=== PATIENT | male | born 1935 | race Caucasian/White ===

== ENCOUNTER 2017-05-29 20:52 | Emergency (ER) | payer MEDICARE, BC ==
[2017-05-29] MEDS ORDERED: Sodium Chloride 0.9% 10 ML Syringe FLUSH PRN (21:08)
[2017-05-29] MEDS ORDERED: Labetalol 20 MG/4 ML Syringe IVPUSH ONE (21:10)
[2017-05-29 22:18] LABS: CHLORIDE,CL 105 mmol/L (98-107); SODIUM,NA 140 mmol/L (136-145)
[2017-05-29 22:38] VITALS: BP 162/72
--- NOTE | 2017-05-30 08:18 | ER ---
Date of Service: 05/29/2017 SUBJECTIVE: The patient presents to the emergency room with complaints of lightheadedness. The patient states that he has been experiencing lightheadedness intermittently for the past several weeks. 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 The patient states that he is not experiencing any chest pain or shortness of breath with this event. He states that he is not experiencing any diaphoresis or nausea. The patient states that the symptoms resolved on their own. He states that he has no prior past medical history and is on no medications, but on reviewing his medical record it was determined that the patient is being followed for lung nodules and does undergo frequent CT scans for these. During CT scans, he has been shown to have moderate atherosclerosis in his coronary arteries. PAST MEDICAL HISTORY: Lung nodules. MEDICATIONS: None. ALLERGIES: NKDA. REVIEW OF SYSTEMS: General: No fever or chills. HEENT: No sore throat, rhinorrhea, or congestion. Respiratory: No shortness of breath. Cardiac: Denies any substernal chest pain. No jaw, arm, neck, or back pain. No palpitations. GI: No nausea, vomiting, or diarrhea. No melena, hematochezia, or hematemesis. : Denies any dysuria. Musculoskeletal: No myalgias or arthralgias. Neurologic: Again did have an episode of lightheadedness without loss of consciousness, lasting less than 5 minutes. PHYSICAL EXAMINATION: General: An 82-year-old male patient, who is in no acute distress. VITAL SIGNS: Initial blood pressure was 196/89. Respiratory rate is 18, O2 saturation is 94% on room air, temperature 36.6, and heart rate is 86. After the patient received IV labetalol, his blood pressure was down to 160/70. Skin: Warm, pale, and dry. HEENT: Head is normocephalic and atraumatic. Eyes: PERRLA. Extraocular movements are intact. There is no funduscopic papilledema noted. Ears, TMs are clear. Mouth: Oral mucosa is somewhat dry. No erythema or exudate. No hypopharynx. Neck: Supple without masses. There is no lymphadenopathy. Lungs: Clear to auscultation. Heart: Regular rate and rhythm. Abdomen: Soft and nontender. There is no hepatosplenomegaly or masses noted. Extremities: Without edema. He has 5/5 strength in both his upper and lower extremities. Neurologic: He has no pronator drift. His Romberg is negative. Facial muscles are symmetrical. Cranial nerves 2 through 12 are intact. DIAGNOSTIC DATA: EKG was obtained showing sinus rhythm with left bundle-branch block. LABORATORY DATA: WBC is 8.5, hemoglobin is 12.1, platelets are 225. Chemistry: Sodium is 140, potassium is 4.8, chloride is 105, bicarb is 28, BUN is 19, creatinine is 1.0, creatinine clearance is 59.73, GFR is greater than 60, glucose is 120, calcium is 8.8, corrected calcium is 9.36, total bilirubin is 0.5, AST is 19, ALT is 17, alkaline phosphatase is 87, CK is 162, CK-MB is 2.7, troponin is less than 0.017, C-reactive protein is 1.7, albumin is 3.3, TSH is mildly elevated at 4.98. He does have a history of elevated TSH. EMERGENCY ROOM COURSE: IV access was established. He was given 20 mg of labetalol IV. Again, this did improve his blood pressure significantly. He did not experience any further lightheadedness. ASSESSMENT: 1. Episode of lightheadedness. 2. Incidental finding of left bundle-branch block. PLAN: I did speak with Dr. Avila at [facility] in [place]. He advised that the patient could be followed up with on an outpatient basis after this hospitalization and stated that he would require a stress test at some point. I did subsequently offer the patient observation hospitalization to perform serial troponin and CK-MB, but the patient adamantly refused. Advised to return to the emergency room if he develops any worsening lightheadedness, chest pain, shortness of breath, or other worrisome signs or symptoms. All questions were answered. MWK: 05/30/2017 02:06:38 MODL: 05/30/2017 06:26:31 /[id number]
== END 2017-05-29 23:05 | disposition home or self-care (01) ==
LOC: VM.ED 20:52
DX: R42 Dizziness and giddiness (principal); I44.7 Left bundle-branch block, unspecified
CPT/HCPCS: 36415; 80053; 82550; 82553; 84443; 84484; 85025; 86140; 93005; 99283; J7050; 96374; A9270-GY

== ENCOUNTER 2019-02-07 20:06 | Emergency (ER) | payer MEDICARE, BC ==
[2019-02-07] MEDS ORDERED: Sodium Chloride 0.9% 10 ML Syringe FLUSH PRN (20:17)
[2019-02-07] MEDS ORDERED: Acetaminophen 500 MG Tab PO ONE (20:20)
[2019-02-07] MEDS ORDERED: Albuterol/Ipratropium 3.0-0.5 MG/3 ML Neb Soln NEB ONE (20:27)
--- NOTE | 2019-02-07 20:42 | EDM.PDOC ---
ED HPI GENERAL MEDICAL PROBLEM - General Chief Complaint: Fever Time Seen by Provider: 02/07/19 20:19 Source of Information: Reports: Patient History Limitations: Reports: No Limitations - History of Present Illness INITIAL COMMENTS - FREE TEXT/NARRATIVE: Pt. presents to ER with complaints of fever, cough, confusion, and mild dyspnea that started late this afternoon. He was brought to the ER via EMS. He states that he has not been experiencing any cough prior to today. He did complain of for R sided flank pain a few days ago. Denies any rashes. No sinus congestion or sore throat. He did have some vomiting but also had a normal stool. He was given a 500ml bolus of NS by EMS. Family states that patient is prone to pneumonia. No has a history of Parkinson' s disease and is on carbidopa/Levodopa. He has no known history of COPD but has a diagnosis of interstitial lung disease. He is not currently on any inhalers. Pt. has no known cardiac history. He was seen in our ER in 2017 for lightheadedness. He was referred to cardiology and had a holter study which did no show any a-fib. He did have an isolated episode of SVT. He has not had any problems since that event. Pt. was noted to be in sinus tach with LBBB on the prehospital 12 lead. This was compared to the EKG done on his visit in 2017 and was unchanged. Denies any abdominal pain. No dysuria. No blood in stools. No recent hospitalizations. No recent travel, foreign or otherwise. Denies any ill contacts that he knows of. 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 Pt. states that the symptoms started today, but his states that he "hasn't been right all week", stating he has been mildly confused and fatigued. Onset: Today Location: Reports: Chest, Generalized Associated Symptoms: Reports: Confusion, Cough, Fever/Chills, Nausea/Vomiting, Weakness. Denies: Chest Pain, Diaphoresis, Rash Treatments [employer]: Reports: IV/IO, Oxygen - Related Data Allergies Allergy/AdvReac Type Severity Reaction Status Date / Time No Known Allergies Allergy Verified 02/07/19 20:20 Home Meds: Home Meds Ascorbate Calcium [Vitamin C] 500 mg PO DAILY 02/07/19 [History] Aspirin [Halfprin] 1 tab PO DAILY 02/07/19 [History] Bilberry 1 tab PO DAILY 02/07/19 [History] Carbidopa/Levodopa [Carbidopa-Levo 25-100 MG ODT] 1 tab PO QID 02/07/19 [History ] Cholecalciferol (Vitamin D3) [Vitamin D3] 2,000 units PO DAILY 02/07/19 [History ] Flaxseed/Omega3,6,9/Fatty Acid [Flax Seed Oil 1,300 mg Softgel] 02/07/19 [ History] Inositol Niacinate [Inositol Hexanicotinate] 500 mg PO DAILY 02/07/19 [History] Magnesium 1 tab PO DAILY 02/07/19 [History] Methylsulfonylmethane [MSM] 1 tab PO DAILY 02/07/19 [History] Mirtazapine 15 mg PO BEDTIME 02/07/19 [History] [place]-3/DHA/Epa/Fish Oil [[place]-3 Fish Oil 1,000 MG Sfgl] 1,000 mg PO DAILY 01/23 [History] Potassium 1 tab PO DAILY 02/07/19 [History] Vitamin E 1 tab PO DAILY 02/07/19 [History] Zinc Amino Acid Chelate [Zinc] 50 mg PO DAILY 02/07/19 [History] Zinc Gluconate [Zinc] 50 mg PO DAILY 02/07/19 [History] Past Medical History Respiratory History: Reports: Other (See Below) Other Respiratory History: chronic "farmers" cough - Past Surgical History HEENT Surgical History: Reports: Cataract Surgery, Tonsillectomy Dermatological Surgical History: Reports: Skin Biopsy Social & Family History - Tobacco Use Smoking Status *Q: Never Smoker - Recreational Drug Use Recreational Drug Use: No ED ROS GENERAL - Review of Systems Review Of Systems: See Below Constitutional: Reports: No Symptoms HEENT: Reports: No Symptoms Respiratory: Reports: Shortness of Breath, Cough Cardiovascular: Reports: No Symptoms Endocrine: Reports: No Symptoms GI/Abdominal: Reports: Nausea, Vomiting. Denies: Abdominal Pain, Diarrhea, Hematemesis, Hematochezia, Melena, Mucous in Stool : Reports: Flank Pain (R sided last week) Musculoskeletal: Reports: No Symptoms Skin: Reports: No Symptoms Neurological: Reports: No Symptoms Psychiatric: Reports: No Symptoms Hematologic/Lymphatic: Reports: No Symptoms Immunologic: Reports: No Symptoms ED EXAM, GENERAL - Physical Exam Exam: See Below Exam Limited By: No Limitations General Appearance: Alert, WD/WN, No Apparent Distress Eye Exam: Bilateral Eye: EOMI, PERRL Ears: Normal External Exam, Normal Canal, Hearing Grossly Normal, Normal TMs Ear Exam: Bilateral Ear: Auricle Normal, Canal Normal, TM normal Nose: Normal Mucosa, No Blood Throat/Mouth: Normal Inspection, Normal Lips, Normal Gums, Normal Oropharynx, Normal Voice, No Airway Compromise Head: Atraumatic, Normocephalic Neck: Normal Inspection, Supple, Non-Tender, Full Range of Motion Respiratory/Chest: Respiratory Distress, Decreased Breath Sounds, Crackles, Wheezing Cardiovascular: Normal Peripheral Pulses, Regular Rate, Rhythm, No Edema, No Gallop, No JVD, No Murmur, No Rub Peripheral Pulses: 4+: Brachial (R) GI/Abdominal: Soft, Non-Tender, No Organomegaly, No Distention, No Mass (Male) Exam: Deferred Rectal (Males) Exam: Deferred Back Exam: Normal Inspection, Full Range of Motion Extremities: Normal Inspection, Normal Range of Motion, Non-Tender, No Pedal Edema, Normal Capillary Refill Neurological: Alert, Oriented, CN II-XII Intact, Normal Reflexes, No Motor/ Sensory Deficits, Confused (initially was mildly confused) Psychiatric: Normal Affect, Normal Mood Skin Exam: Warm, Dry, Intact, Other (flushed) EKG INTERPRETATION Rhythm: NSR [place]: Normal P-Wave: Present QRS: LBBB ST-T: Normal QT: Normal Course - Vital Signs Last Recorded V/S: Last Vital Signs Temp 40.5 C H 02/07/19 21:13 Pulse 112 H 02/07/19 21:19 Resp 24 H 02/07/19 21:19 BP 136/68 02/07/19 21:19 Pulse Ox 94 L 02/07/19 21:19 - Orders/Labs/Meds Orders: Active Orders 24 hr Category Date Time Status EKG Documentation Completion [RC] STAT Care 02/07/19 20:18 Active RT Aerosol Therapy [RC] ASDIRECTED Care 02/07/19 20:27 Active Chest 1V Frontal [CR] Stat Exams 02/07/19 20:18 Ordered CULTURE BLOOD [BC] Stat Lab 02/07/19 20:19 Ordered CULTURE BLOOD [BC] Stat Lab 02/07/19 20:19 Ordered UA W/MICROSCOPIC [URIN] Stat Lab 02/07/19 20:19 Ordered Sodium Chloride 0.9% @ 100 MLS/HR(1000ml) Med 02/07/19 21:15 Ordered Sodium Chloride 0.9% [Normal Saline] 1,000 ml IV ASDIRECTED Sodium Chloride 0.9% [Saline Flush] Med 02/07/19 20:17 Active 10 ml FLUSH ASDIRECTED PRN Vancomycin 1,500 mg Med 02/07/19 21:48 Ordered Sodium Chloride 0.9% [Normal Saline] 250 ml IV STAT Blood Culture x2 Reflex Set [OM.PC] Stat Oth 02/07/19 20:19 Ordered Peripheral IV Insertion Adult [OM.PC] Routine Oth 02/07/19 20:18 Ordered Medication Orders Sodium Chloride (Normal Saline) 1,000 mls @ 100 mls/hr IV ASDIRECTED RYDER Last Admin: 02/07/19 21:17 Dose: 100 mls/hr Vancomycin HCl 1,500 mg/ (Sodium Chloride) 250 mls @ 167 mls/hr IV STAT ONE Stop: 02/07/19 23:17 Sodium Chloride (Saline Flush) 10 ml FLUSH ASDIRECTED PRN PRN Reason: Keep Vein Open Last Admin: 02/07/19 20:31 Dose: 10 ml Labs: Laboratory Tests 02/07/19 02/07/19 02/07/19 Range/Units 20:38 20:38 20:38 WBC 3.3 L (4.0-10.0) x10^3/uL RBC 3.61 L (4.5-6.0) x10^6/uL Hgb 10.8 L (14.0-18.0) g/dL Hct 33.6 L (40.0-52.0) % MCV 93.1 H (78.0-93.0) fL MCH 29.9 (26.0-32.0) pg MCHC 32.1 (32.0-36.0) g/dL RDW Coeff of Angelique 13.2 (10.0-15.0) % Plt Count 185 (130-400) x10^3/uL Add Manual Diff Yes Neutrophils % (Manual) 79 (50-80) % Band Neutrophils % 5 (0-6) % Lymphocytes % (Manual) 3 L (25-50) % Reactive Lymphs % 1 H (0) % Monocytes % (Manual) 6 (2-11) % Eosinophils % (Manual) 3 (0-4) % Metamyelocytes % 3 H (0) % Vacuolated Monocytes 2+ moderate H Toxic Granulation 1+ slight H Polychromasia Rare Rouleaux 1+ slight H PT 13.4 H (10.0-12.8) SEC INR 1.2 L (2.0-3.5) Sodium 143 (136-145) mmol/L Potassium 4.4 (3.5-5.1) mmol/L Chloride 107 (98-107) mmol/L Carbon Dioxide 22 (21-32) mmol/L Anion Gap 18.4 (10-20) mmol/L BUN 31 H (7-18) mg/dL Creatinine 1.5 H (0.70-1.30) mg/dL Est Cr Clr Drug Dosing 38.53 mL/min Estimated GFR (MDRD) 45 Glucose 99 (74-106) mg/dL Lactic Acid (0.4-2.0) mmol/L Calcium 8.2 L (8.5-10.1) mg/dL Corrected Calcium 9.24 (8.5-10.1) mg/dL Phosphorus 2.8 (2.6-4.7) mg/dL Magnesium 1.4 L (1.8-2.4) mg/dL Total Bilirubin 0.6 (0.2-1.0) mg/dL AST 36 (15-37) U/L ALT 23 (16-63) U/L Alkaline Phosphatase 178 H (46-116) U/L Troponin I 0.077 H* (<=0.056) ng/mL C-Reactive Protein 4.1 H (<=0.9) mg/dL NT-Pro-B Natriuret Pep 412 (<=450) pg/mL Total Protein 7.1 (6.4-8.2) g/dL Albumin 2.7 L (3.4-5.0) g/dL Globulin 4.4 Albumin/Globulin Ratio 0.61 TSH, Ultra Sensitive 8.659 H (0.358-3.74) uIU/mL 02/07/19 Range/Units 20:38 WBC (4.0-10.0) x10^3/uL RBC (4.5-6.0) x10^6/uL Hgb (14.0-18.0) g/dL Hct (40.0-52.0) % MCV (78.0-93.0) fL MCH (26.0-32.0) pg MCHC (32.0-36.0) g/dL RDW Coeff of Angelique (10.0-15.0) % Plt Count (130-400) x10^3/uL Add Manual Diff Neutrophils % (Manual) (50-80) % Band Neutrophils % (0-6) % Lymphocytes % (Manual) (25-50) % Reactive Lymphs % (0) % Monocytes % (Manual) (2-11) % Eosinophils % (Manual) (0-4) % Metamyelocytes % (0) % Vacuolated Monocytes Toxic Granulation Polychromasia Rouleaux PT (10.0-12.8) SEC INR (2.0-3.5) Sodium (136-145) mmol/L Potassium (3.5-5.1) mmol/L Chloride (98-107) mmol/L Carbon Dioxide (21-32) mmol/L Anion Gap (10-20) mmol/L BUN (7-18) mg/dL Creatinine (0.70-1.30) mg/dL Est Cr Clr Drug Dosing mL/min Estimated GFR (MDRD) Glucose (74-106) mg/dL Lactic Acid 4.2 H* (0.4-2.0) mmol/L Calcium (8.5-10.1) mg/dL Corrected Calcium (8.5-10.1) mg/dL Phosphorus (2.6-4.7) mg/dL Magnesium (1.8-2.4) mg/dL Total Bilirubin (0.2-1.0) mg/dL AST (15-37) U/L ALT (16-63) U/L Alkaline Phosphatase (46-116) U/L Troponin I (<=0.056) ng/mL C-Reactive Protein (<=0.9) mg/dL NT-Pro-B Natriuret Pep (<=450) pg/mL Total Protein (6.4-8.2) g/dL Albumin (3.4-5.0) g/dL Globulin Albumin/Globulin Ratio TSH, Ultra Sensitive (0.358-3.74) uIU/mL Meds: Medications Generic Name Dose Route Start Last Admin Trade Name Freq PRN Reason Stop Dose Admin Sodium Chloride 1,000 mls @ 100 mls/hr 02/07/19 21:15 02/07/19 21:17 Normal Saline IV 100 mls/hr ASDIRECTED RYDER Administration Vancomycin HCl 1,500 mg/ 250 mls @ 167 mls/hr 02/07/19 21:48 Sodium Chloride IV 02/07/19 23:17 STAT ONE Sodium Chloride 10 ml 02/07/19 20:17 02/07/19 20:31 Saline Flush FLUSH 10 ml ASDIRECTED PRN Administration Keep Vein Open Discontinued Medications Generic Name Dose Route Start Last Admin Trade Name Freq PRN Reason Stop Dose Admin Acetaminophen 1,000 mg 02/07/19 20:20 02/07/19 20:30 Tylenol Extra Strength PO 02/07/19 20:21 1,000 mg ONETIME ONE Administration Albuterol/Ipratropium 3 ml 02/07/19 20:27 02/07/19 20:39 Duoneb 3.0-0.5 Mg/3 Ml NEB 02/07/19 20:28 3 ml ONETIME ONE Administration Ceftriaxone Sodium 2 gm 02/07/19 20:50 02/07/19 21:01 Rocephin IVPUSH 02/07/19 20:51 2 gm STAT ONE Administration Azithromycin 500 mg/ Sodium 250 mls @ 250 mls/hr 02/07/19 20:51 02/07/19 21: 10 Chloride IV 02/07/19 21:50 250 mls/hr STAT ONE Administration Sodium Chloride 500 mls @ 100 mls/hr 02/07/19 21:00 Normal Saline IV ASDIRECTED [facility] - Re-Assessments/Exams Free Text/Narrative Re-Assessment/Exam: Pt. was given a duoneb breathing treatment on arrival to ER. He was given acetaminophen 1000mg PO. He was started on NS 100ml/hr. in addition to the 500ml saline bolus. Chest x-ray was reviewed. He was given rocephin 2 mg IV and Azithromycin 500mg IV. Departure - Departure Time of Disposition: 22:00 Disposition: DC/Tfer to Acute Hospital 02 Condition: Critical Clinical Impression: Pneumonia, NSTEMI (non-ST elevated myocardial infarction), SHAINA (acute kidney injury), Sepsis - Discharge Information Referrals: Jett Fletcher MD [Primary Care Provider] - Forms: ED Department Discharge, Interfacility Transfer EMTALA - Problem List Review Problem List Initiated/Reviewed/Updated: Yes - My Orders Last 24 Hours: My Active Orders 02/07/19 20:17 Sodium Chloride 0.9% [Saline Flush] 10 ml FLUSH ASDIRECTED PRN 02/07/19 20:18 EKG Documentation Completion [RC] STAT Chest 1V Frontal [CR] Stat Peripheral IV Insertion Adult [OM.PC] Routine 02/07/19 20:19 CULTURE BLOOD [BC] Stat CULTURE BLOOD [BC] Stat UA W/MICROSCOPIC [URIN] Stat Blood Culture x2 Reflex Set [OM.PC] Stat 02/07/19 20:27 RT Aerosol Therapy [RC] ASDIRECTED 02/07/19 21:15 Sodium Chloride 0.9% @ 100 MLS/HR(1000ml) Sodium Chloride 0.9% [Normal Saline] 1 ,000 ml IV ASDIRECTED 02/07/19 21:48 Vancomycin 1,500 mg Sodium Chloride 0.9% [Normal Saline] 250 ml IV STAT - Assessment/Plan Last 24 Hours: My Active Orders 02/07/19 20:17 Sodium Chloride 0.9% [Saline Flush] 10 ml FLUSH ASDIRECTED PRN 02/07/19 20:18 EKG Documentation Completion [RC] STAT Chest 1V Frontal [CR] Stat Peripheral IV Insertion Adult [OM.PC] Routine 02/07/19 20:19 CULTURE BLOOD [BC] Stat CULTURE BLOOD [BC] Stat UA W/MICROSCOPIC [URIN] Stat Blood Culture x2 Reflex Set [OM.PC] Stat 02/07/19 20:27 RT Aerosol Therapy [RC] ASDIRECTED 02/07/19 21:15 Sodium Chloride 0.9% @ 100 MLS/HR(1000ml) Sodium Chloride 0.9% [Normal Saline] 1 ,000 ml IV ASDIRECTED 02/07/19 21:48 Vancomycin 1,500 mg Sodium Chloride 0.9% [Normal Saline] 250 ml IV STAT Plan: Pt. will be transferred to [facility]. I spoke with Dr. Martell who accepts the patient in transfer. He will be transported via [facility] ground ambulance. He has had rocephin and azithromycin. Will also start Vancomycin 1.5 gm IV. Will continue IV fluids at 250mg/HR. He has had approx. 1750 ml of fluid on board at this point.
[2019-02-07] MEDS ORDERED: cefTRIAXone 2 GM Vial IVPUSH ONE (20:50)
[2019-02-07] MEDS ORDERED: Azithromycin 500 MG in Sodium Chloride 0.9% 250 ML IV ONE (20:51)
[2019-02-07] MEDS ORDERED: Sodium Chloride 0.9% 500 ML IV SCH (21:00)
[2019-02-07] MEDS ORDERED: Sodium Chloride 0.9% 1,000 ML IV SCH (21:15)
[2019-02-07 21:29] LABS: ANION GAP 18.4 mmol/L (10-20)
[2019-02-07] MEDS ORDERED: Sodium Chloride 0.9% 1,000 ML IV ONE (22:20)
[2019-02-08 06:09] VITALS: BP 107/56
--- NOTE | 2019-02-09 09:05 | CR ---
[id number] RAD/RAD Chest PA or AP 1V EXAM: FRONTAL CHEST INDICATION: Fever and chills. COMPARISON: October 23, 2016. DISCUSSION: There is an 8 mm right midlung nodular opacity and multiple smaller nodular opacities that are similar in appearance to a October 23, [address] could be performed to evaluate for interval change in the context of acute fever and chills. No localized infiltrates are identified. The heart is normal in size. IMPRESSION: 1. Multiple small nodular opacities in both lungs are similar to findings on a October 23, [address] to evaluate for new infiltrates which could be obscured by the chronic changes. Ricky Colon MD 02/09/19 0903 Thank you for allowing us to participate in the care of your patient.
== END 2019-02-07 22:58 | disposition short-term general hospital (02) ==
LOC: VM.ED 20:06
DX: A41.9 Sepsis, unspecified organism (principal); R65.20 Severe sepsis without septic shock; N17.9 Acute kidney failure, unspecified; I21.4 Non-ST elevation (NSTEMI) myocardial infarction; J18.9 Pneumonia, unspecified organism; Z79.82 Long term (current) use of aspirin; Z79.899 Other long term (current) drug therapy
CPT/HCPCS: 36415; 71045; 80053; 81001; 83605; 83735; 83880; 84100; 84443; 84484; 85025; 85610; 86140; 87040; 87086; 87804; 93005; 94640; 96361; 96365; 96368; 96375; 99285; A9270; J0456; J0696; J3370; J7030; J7050; J7620-GY

== ENCOUNTER 2020-03-26 16:17 | Emergency (ER) | payer MEDICARE, BC ==
--- NOTE | 2020-03-26 17:03 | EDM.PDOC ---
ED HPI GENERAL MEDICAL PROBLEM - General Chief Complaint: General Stated Complaint: ER Time Seen by Provider: 03/26/20 16:30 Source of Information: Reports: Patient History Limitations: Reports: No Limitations - History of Present Illness INITIAL COMMENTS - FREE TEXT/NARRATIVE: Patient comes into the emergency department with concerns of dark urine. Patient has a urinary history of urosepsis approximately 1 year ago after having dark cloudy urine for approximately 1 week. When he had the urosepsis he had very similar symptoms as this time. He was asymptomatic in the beginning. Patient currently denies any symptoms related to the dark urine. He denies any urinary frequency, hesitancy, frequency, fever, headache, nausea, blurred vision, chest pain, shortness of breath, peripheral edema, loss of bowel or bladder, or peripheral edema.Patient states that he noticed the dark-colored urine Last 2 days with this morning being the darkest. His is concerned that it could progress into the urosepsis as it did 1 year ago he was hospitalized in ICU for extended period of time and she is hesitant to wait. Patient denies any active COVID symptoms. Patient also states he has not been around anyone with COVID diagnosis. He states he has been relatively healthy prior t.lissa Onset: Gradual - Related Data Allergies Allergy/AdvReac Type Severity Reaction Status Date / Time No Known Allergies Allergy Verified 02/07/19 20:20 Home Meds: Home Meds Ascorbate Calcium [Vitamin C] 500 mg PO DAILY 02/07/19 [History] Aspirin [Halfprin] 1 tab PO DAILY 02/07/19 [History] Bilberry 1 tab PO DAILY 02/07/19 [History] Carbidopa/Levodopa [Carbidopa-Levo 25-100 MG ODT] 1 tab PO QID 02/07/19 [History] Cholecalciferol (Vitamin D3) [Vitamin D3] 2,000 units PO DAILY 02/07/19 [History] Flaxseed/Omega3,6,9/Fatty Acid [Flax Seed Oil 1,300 mg Softgel] 02/07/19 [History] Inositol Niacinate [Inositol Hexanicotinate] 500 mg PO DAILY 02/07/19 [History] Magnesium 1 tab PO DAILY 02/07/19 [History] Methylsulfonylmethane [MSM] 1 tab PO DAILY 02/07/19 [History] Mirtazapine 15 mg PO BEDTIME 02/07/19 [History] [place]-3/DHA/Epa/Fish Oil [[place]-3 Fish Oil 1,000 MG Sfgl] 1,000 mg PO DAILY 02/07/19 [History] Potassium 1 tab PO DAILY 02/07/19 [History] Vitamin E 1 tab PO DAILY 02/07/19 [History] Zinc Amino Acid Chelate [Zinc] 50 mg PO DAILY 02/07/19 [History] Zinc Gluconate [Zinc] 50 mg PO DAILY 02/07/19 [History] Sulfamethoxazole/Trimethoprim [Bactrim Ds Tablet] 1 each PO BID 4 Days #8 tablet 03/26/20 [Rx] Past Medical History Respiratory History: Reports: Other (See Below) Other Respiratory History: chronic "farmers" cough - Past Surgical History HEENT Surgical History: Reports: Cataract Surgery, Tonsillectomy Dermatological Surgical History: Reports: Skin Biopsy ED ROS GENERAL - Review of Systems Review Of Systems: Comprehensive ROS is negative, except as noted in HPI. Constitutional: Reports: No Symptoms HEENT: Reports: No Symptoms Respiratory: Reports: No Symptoms Cardiovascular: Reports: No Symptoms GI/Abdominal: Reports: No Symptoms Musculoskeletal: Reports: No Symptoms Skin: Reports: No Symptoms Neurological: Reports: No Symptoms Psychiatric: Reports: No Symptoms Hematologic/Lymphatic: Reports: No Symptoms ED EXAM, RENAL/ - Physical Exam Exam: See Below Exam Limited By: No Limitations General Appearance: Alert, WD/WN, No Apparent Distress Respiratory/Chest: No Respiratory Distress, Lungs Clear, Normal Breath Sounds, No Accessory Muscle Use, Chest Non-Tender Cardiovascular: Normal Peripheral Pulses, Regular Rate, Rhythm, No Edema GI/Abdominal: Normal Bowel Sounds, Soft, Non-Tender Back Exam: Normal Inspection, Full Range of Motion Extremities: Normal Inspection, Normal Range of Motion, Non-Tender, Normal Capillary Refill Neurological: Alert, Oriented, Normal Cognition Psychiatric: Normal Affect, Normal Mood Skin Exam: Warm, Dry, Intact Course - Orders/Labs/Meds Labs: Laboratory Tests 03/26/20 03/26/20 03/26/20 Range/Units 16:28 17:14 17:14 WBC 9.0 (4.0-10.0) x10^3/uL RBC 3.26 L (4.5-6.0) x10^6/uL Hgb 10.8 L (14.0-18.0) g/dL Hct 32.2 L (40.0-52.0) % MCV 98.8 H D (78.0-93.0) fL MCH 33.1 H (26.0-32.0) pg MCHC 33.5 (32.0-36.0) g/dL RDW Coeff of Angelique 13.9 (10.0-15.0) % Plt Count 352 D (130-400) x10^3/uL Neut % (Auto) 70.4 (50.0-80.0) % Lymph % (Auto) 13.0 L (25.0-50.0) % [place] % (Auto) 10.0 (2.0-11.0) % Eos % (Auto) 6.3 H (0.0-4.0) % Baso % (Auto) 0.3 (0.2-1.2) % Sodium 134 L (136-145) mmol/L Potassium 4.0 (3.5-5.1) mmol/L Chloride 99 (98-107) mmol/L Carbon Dioxide 28 (21-32) mmol/L Anion Gap 11.0 (10-20) mmol/L BUN 25 H (7-18) mg/dL Creatinine 1.1 (0.70-1.30) mg/dL Est Cr Clr Drug Dosing TNP Estimated GFR (MDRD) > 60 Glucose 98 (74-106) mg/dL Calcium 8.1 L (8.5-10.1) mg/dL Corrected Calcium 9.70 (8.5-10.1) mg/dL Total Bilirubin 0.4 (0.2-1.0) mg/dL AST 45 H (15-37) U/L ALT 13 L (16-63) U/L Alkaline Phosphatase 248 H (46-116) U/L Total Protein 7.2 (6.4-8.2) g/dL Albumin 2.0 L (3.4-5.0) g/dL Globulin 5.2 Albumin/Globulin Ratio 0.38 Urine Color [place] H (YELLOW) Urine Appearance Cloudy H (CLEAR) Urine pH 5.5 (5.0-8.0) Ur Specific [place] 1.020 Urine Protein 100 H (NEGATIVE) mg/dL Urine Glucose (UA) Negative (NEGATIVE) mg/dL Urine Ketones Negative (NEGATIVE) mg/dL Urine Occult Blood Large H (NEGATIVE) Urine Nitrite Negative (NEGATIVE) Urine Bilirubin Small H (NEGATIVE) Urine Urobilinogen 0.2 (0.2) EU/dL Ur Leukocyte Esterase Negative (NEGATIVE) Urine RBC Packed H (NOT SEEN) /HPF Urine WBC Not seen (NOT SEEN) /HPF Ur Squamous Epith Cells Rare (NEGATIVE) /HPF Urine Bacteria Not seen (NEGATIVE) /HPF Urine Mucus Rare H (NEGATIVE) /LPF Departure - Departure Time of Disposition: 18:00 Disposition: Home, Self-Care 01 Condition: Good Clinical Impression: UTI (urinary tract infection) Qualifiers: Urinary tract infection type: site unspecified Hematuria presence: with hematuria Qualified Code(s): N39.0 - Urinary tract infection, site not specified; R31.9 - Hematuria, unspecified - Discharge Information *PRESCRIPTION DRUG MONITORING PROGRAM REVIEWED*: Not Applicable *COPY OF PRESCRIPTION DRUG MONITORING REPORT IN PATIENT BALAJI: Not Applicable Instructions: Urinary Tract Infection, Adult, Sulfamethoxazole; Trimethoprim, SMX-TMP tablets, Probiotics Referrals: Jett Fletcher MD [Primary Care Provider] - Forms: ED Department Discharge Additional Instructions: 1. rest 2. increase your water intake 3. Take all antibiotics as prescribed even if feeling better 4. Take a probiotic while on antibiotics to help promote healthy GI motility 5. Activity and diet as tolerated 6. Can use Ibuprofen and Tylenol for any fever or discomfort 7. Follow up with your PCP or return if symptoms progress or worsen 8. Education provided to you regarding your illness, probiotics, antibiotic prescribed 9. Call with any questions or concerns - Assessment/Plan Assessment:: 1. UTI Plan: 1. Labs completed in the ER. Results reviewed with the patient 2. UA/UC completed in ER. 3. Bactrim DS given in ER 4. Bactrim take home pack provided for pharmacies are closed tomorrow 5. Script of bactrim sent with pt 6. Patient and nursing staff was updated regarding the plan of care 7. Education provided the patient regarding activity, diet, rest, [id number] medication modalities, and follow-up care was provided 8. Patient and family are agreeable to the above plan of care 9. All questions and concerns were addressed with the patient and family prior to discharge
[2020-03-26 17:42] LABS: CHLORIDE,CL 99 mmol/L (98-107); SODIUM,NA 134 mmol/L (136-145)
[2020-03-26] MEDS ORDERED: Sulfamethoxazole/Trimethoprim 800-160 MG Tab PO ONE (17:52)
[2020-03-26] MEDS ORDERED: Take Home: Sulfamethoxazole/Trimethoprim 800-160 MG Tab, 2 Tab Pack PO ONE (17:53)
[2020-03-26 19:11] VITALS: BP 160/85; PULSE 82
== END 2020-03-26 18:20 | disposition home or self-care (01) ==
LOC: VM.ED 16:17
DX: N39.0 Urinary tract infection, site not specified (principal); R31.9 Hematuria, unspecified; Z79.82 Long term (current) use of aspirin; Z79.899 Other long term (current) drug therapy
CPT/HCPCS: 36415; 80053; 81001; 85025; 99283; 99284; A9270

== ENCOUNTER 2020-05-07 08:45 | Inpatient (IN) | payer MEDICARE, BC ==
[2020-05-07] MEDS ORDERED: cefTRIAXone 1 GM Vial IVPUSH ONE (09:05)
[2020-05-07] MEDS ORDERED: Sodium Chloride 0.9% 1,000 ML IV ONE (09:05)
[2020-05-07] MEDS ORDERED: Acetaminophen 325 MG Tab PO ONE (09:05)
[2020-05-07] MEDS ORDERED: Ondansetron 4 MG/2 ML SDV IVPUSH ONE (09:07)
--- NOTE | 2020-05-07 09:13 | EDM.PDOC ---
ED HPI GENERAL MEDICAL PROBLEM - General Chief Complaint: General Stated Complaint: FEVER/THROWING UP Time Seen by Provider: 05/07/20 08:55 Source of Information: Reports: Patient, Family History Limitations: Reports: No Limitations - History of Present Illness INITIAL COMMENTS - FREE TEXT/NARRATIVE: Patient comes into the emergency department with complaint of nausea, vomiting, cough and fever. States he woke up around 4 AM this morning with body aches and chills and shortly after that he noticed that he had a fever and began to feel nauseated and ended up vomiting. Patient has had a cough the last couple days he states that is slowly progressed. He believes he vomited because of the excessive coughing this am. Patient states he overall does not feel well. He denies anything that makes the symptoms less or worse. He denies any known COVID-19 exposure or recent testing himself. Patient states that he does get short of breath when ambulating long distance- and that is not normal for him. Patient denies any chest pain, shortness of breath with rest, pain, abdominal discomfort, genitourinary concerns, or peripheral edema. States he has been relatively healthy the last month and has no other concerns or complaints. Onset: Sudden Quality: Reports: Other Severity: Moderate Improves with: Reports: None Worsens with: Reports: None Associated Symptoms: Reports: No Other Symptoms - Related Data Allergies Allergy/AdvReac Type Severity Reaction Status Date / Time No Known Allergies Allergy Verified 05/07/20 09:51 Home Meds: Home Meds Aspirin [Halfprin] 1 tab PO DAILY 02/07/19 [History] Carbidopa/Levodopa [Carbidopa-Levo 25-100 MG ODT] 1 tab PO QID 02/07/19 [History] Cholecalciferol (Vitamin D3) [Vitamin D3] 10,000 units PO DAILY 02/07/19 [History] Mirtazapine 15 mg PO BEDTIME 02/07/19 [History] Acetaminophen [Tylenol Extra Strength] 500 mg PO Q4H PRN 05/07/20 [History] Albuterol/Ipratropium [DuoNeb 3.0-0.5 MG/3 ML] 3 ml NEB QID PRN 05/07/20 [History] Amylase/Lipase/Protease [Creon DR 12,000 Units] 1 cap PO DAILY 05/07/20 [History] Ascorbic Acid 1,000 mg PO DAILY 05/07/20 [History] Docusate Sodium [Colace] 200 - 300 mg PO DAILY 05/07/20 [History] Furosemide [Lasix] 20 mg PO DAILY 05/07/20 [History] Ibuprofen 200 mg PO Q4HR PRN 05/07/20 [History] Magnesium Oxide 250 mg PO DAILY 05/07/20 [History] Multivit,Calc,Mins/Iron/Folic [Thera-M] 1 tab PO DAILY 05/07/20 [History] Mupirocin Oint [Bactroban Oint] 1 applic TOP BID PRN 05/07/20 [History] Omeprazole Magnesium [Prilosec Otc] 20 mg PO DAILY 05/07/20 [History] bisacodyL [Dulcolax] 10 mg RC DAILY PRN 05/07/20 [History] hydrOXYzine pamoate [Vistaril] 25 mg PO Q4H PRN 05/07/20 [History] polyethylene glycoL 3350 [MiraLAX] 17 gm PO DAILY PRN 05/07/20 [History] Past Medical History Respiratory History: Reports: Other (See Below) Other Respiratory History: chronic "farmers" cough - Past Surgical History HEENT Surgical History: Reports: Cataract Surgery, Tonsillectomy Dermatological Surgical History: Reports: Skin Biopsy ED ROS GENERAL - Review of Systems Review Of Systems: See Below Constitutional: Reports: Fever, Chills, Malaise, Fatigue HEENT: Reports: No Symptoms Respiratory: Reports: Shortness of Breath, Cough Cardiovascular: Reports: No Symptoms Endocrine: Reports: Fatigue GI/Abdominal: Reports: No Symptoms : Reports: No Symptoms Skin: Reports: No Symptoms Neurological: Reports: No Symptoms Psychiatric: Reports: No Symptoms Hematologic/Lymphatic: Reports: No Symptoms Immunologic: Reports: No Symptoms ED EXAM, GENERAL - Physical Exam Exam: See Below Exam Limited By: No Limitations General Appearance: Alert, WD/WN, No Apparent Distress Eye Exam: Bilateral Eye: EOMI, PERRL Throat/Mouth: Normal Inspection, Normal Lips, No Airway Compromise Head: Atraumatic, Normocephalic Neck: Normal Inspection, Supple, Non-Tender, Full Range of Motion Respiratory/Chest: No Respiratory Distress, Chest Non-Tender, Decreased Breath Sounds Cardiovascular: Normal Peripheral Pulses, Regular Rate, Rhythm, Tachycardia GI/Abdominal: Normal Bowel Sounds, Soft, Non-Tender, No Distention Back Exam: Normal Inspection, Full Range of Motion Extremities: Normal Inspection, Normal Range of Motion, Non-Tender Neurological: Alert, Oriented, CN II-XII Intact, Normal Gait Psychiatric: Normal Affect, Normal Mood Skin Exam: Warm, Dry, Intact Course - Vital Signs Last Recorded V/S: Last Vital Signs Temp 37.7 C 05/07/20 08:50 Pulse 105 H 05/07/20 08:50 Resp 36 H 05/07/20 08:50 BP 132/66 05/07/20 08:50 Pulse Ox 91 L 05/07/20 08:50 - Orders/Labs/Meds Orders: Active Orders 24 hr Category Date Time Status EKG Documentation Completion [RC] STAT Care 05/07/20 09:05 Active CULTURE BLOOD [BC] Stat Lab 05/07/20 09:10 Received CULTURE BLOOD [BC] Stat Lab 05/07/20 09:36 Received CULTURE URINE [RM] Stat Lab 05/07/20 10:18 Received PROCALCITONIN [REF] Stat Lab 05/07/20 09:10 Received UA W/MICROSCOPIC [URIN] Stat Lab 05/07/20 10:18 Results Sodium Chloride 0.9% [Saline Flush] Med 05/07/20 09:05 Active 10 ml FLUSH ASDIRECTED PRN Blood Culture x2 Reflex Set [OM.PC] Stat Oth 05/07/20 09:05 Ordered Peripheral IV Insertion Adult [OM.PC] Stat Oth 05/07/20 09:05 Ordered Medication Orders Sodium Chloride (Saline Flush) 10 ml FLUSH ASDIRECTED PRN PRN Reason: Keep Vein Open Labs: Laboratory Tests 05/07/20 05/07/20 05/07/20 Range/Units 08:58 09:10 09:10 WBC 14.9 H (4.0-10.0) x10^3/uL RBC 3.17 L (4.5-6.0) x10^6/uL Hgb 10.5 L (14.0-18.0) g/dL Hct 31.7 L (40.0-52.0) % MCV 100.0 H (78.0-93.0) fL MCH 33.1 H (26.0-32.0) pg MCHC 33.1 (32.0-36.0) g/dL RDW Coeff of Angelique 13.3 (10.0-15.0) % Plt Count 272 D (130-400) x10^3/uL Neut % (Auto) 89.3 H (50.0-80.0) % Lymph % (Auto) 3.1 L (25.0-50.0) % [place] % (Auto) 7.2 (2.0-11.0) % Eos % (Auto) 0.3 (0.0-4.0) % Baso % (Auto) 0.1 L (0.2-1.2) % Sodium 135 L (136-145) mmol/L Potassium 3.9 (3.5-5.1) mmol/L Chloride 101 (98-107) mmol/L Carbon Dioxide 25 (21-32) mmol/L Anion Gap 12.9 (10-20) mmol/L BUN 32 H (7-18) mg/dL Creatinine 1.3 (0.70-1.30) mg/dL Est Cr Clr Drug Dosing 39.98 mL/min Estimated GFR (MDRD) 52 Glucose 96 (74-106) mg/dL Lactic Acid (0.4-2.0) mmol/L Calcium 8.2 L (8.5-10.1) mg/dL Corrected Calcium 9.64 (8.5-10.1) mg/dL Total Bilirubin 0.6 (0.2-1.0) mg/dL AST 44 H (15-37) U/L ALT 21 (16-63) U/L Alkaline Phosphatase 228 H (46-116) U/L Troponin I 0.076 H* (<=0.056) ng/mL NT-Pro-B Natriuret Pep 1357 H (<=450) pg/mL Total Protein 7.1 (6.4-8.2) g/dL Albumin 2.2 L (3.4-5.0) g/dL Globulin 4.9 Albumin/Globulin Ratio 0.45 Urine Color (YELLOW) Urine Appearance (CLEAR) Urine pH (5.0-8.0) Ur Specific [place] Urine Protein (NEGATIVE) mg/dL Urine Glucose (UA) (NEGATIVE) mg/dL Urine Ketones (NEGATIVE) mg/dL Urine Occult Blood (NEGATIVE) Urine Nitrite (NEGATIVE) Urine Bilirubin (NEGATIVE) Urine Urobilinogen (0.2) EU/dL Ur Leukocyte Esterase (NEGATIVE) COVID-19 (ANDERS) Negative (NEGATIVE) 05/07/20 05/07/20 Range/Units 09:36 10:18 WBC (4.0-10.0) x10^3/uL RBC (4.5-6.0) x10^6/uL Hgb (14.0-18.0) g/dL Hct (40.0-52.0) % MCV (78.0-93.0) fL MCH (26.0-32.0) pg MCHC (32.0-36.0) g/dL RDW Coeff of Angelique (10.0-15.0) % Plt Count (130-400) x10^3/uL Neut % (Auto) (50.0-80.0) % Lymph % (Auto) (25.0-50.0) % [place] % (Auto) (2.0-11.0) % Eos % (Auto) (0.0-4.0) % Baso % (Auto) (0.2-1.2) % Sodium (136-145) mmol/L Potassium (3.5-5.1) mmol/L Chloride (98-107) mmol/L Carbon Dioxide (21-32) mmol/L Anion Gap (10-20) mmol/L BUN (7-18) mg/dL Creatinine (0.70-1.30) mg/dL Est Cr Clr Drug Dosing mL/min Estimated GFR (MDRD) Glucose (74-106) mg/dL Lactic Acid 1.3 (0.4-2.0) mmol/L Calcium (8.5-10.1) mg/dL Corrected Calcium (8.5-10.1) mg/dL Total Bilirubin (0.2-1.0) mg/dL AST (15-37) U/L ALT (16-63) U/L Alkaline Phosphatase (46-116) U/L Troponin I (<=0.056) ng/mL NT-Pro-B Natriuret Pep (<=450) pg/mL Total Protein (6.4-8.2) g/dL Albumin (3.4-5.0) g/dL Globulin Albumin/Globulin Ratio Urine Color Dark yellow H (YELLOW) Urine Appearance Slightly cloudy H (CLEAR) Urine pH 5.5 (5.0-8.0) Ur Specific [place] 1.020 Urine Protein 100 H (NEGATIVE) mg/dL Urine Glucose (UA) Negative (NEGATIVE) mg/dL Urine Ketones Trace H (NEGATIVE) mg/dL Urine Occult Blood Large H (NEGATIVE) Urine Nitrite Negative (NEGATIVE) Urine Bilirubin Small H (NEGATIVE) Urine Urobilinogen 0.2 (0.2) EU/dL Ur Leukocyte Esterase Trace H (NEGATIVE) COVID-19 (ANDERS) (NEGATIVE) Meds: Medications Generic Name Dose Route Start Last Admin Trade Name Freq PRN Reason Stop Dose Admin Sodium Chloride 10 ml 05/07/20 09:05 Saline Flush FLUSH ASDIRECTED PRN Keep Vein Open Discontinued Medications Generic Name Dose Route Start Last Admin Trade Name Freq PRN Reason Stop Dose Admin Acetaminophen 650 mg 05/07/20 09:05 05/07/20 09:31 Tylenol PO 05/07/20 09:06 650 mg NOW ONE Administration Ceftriaxone Sodium 1 gm 05/07/20 09:05 05/07/20 09:31 Rocephin IVPUSH 05/07/20 09:06 1 gm ONETIME ONE Administration Sodium Chloride 1,000 mls @ 1,000 mls/hr 05/07/20 09:05 05/07/20 09:22 Normal Saline IV 05/07/20 10:04 1,000 mls/hr ONETIME ONE Administration Ondansetron HCl 4 mg 05/07/20 09:07 05/07/20 09:31 Zofran IVPUSH 05/07/20 09:08 4 mg ONETIME ONE Administration Departure - Departure Time of Disposition: 10:30 Disposition: Admitted As Inpatient 66 Condition: Good Clinical Impression: Pneumonia Qualifiers: Pneumonia type: due to unspecified organism Laterality: unspecified laterality Lung location: unspecified part of lung Qualified Code(s): J18.9 - Pneumonia, unspecified organism - Discharge Information Forms: ED Department Discharge Sepsis Event Note (ED) - Focused Exam Vital Signs: Vital Signs Temp Pulse Resp BP Pulse Ox 05/07/20 08:50 37.7 C 105 H 36 H 132/66 91 L - My Orders Last 24 Hours: My Active Orders 05/07/20 09:05 EKG Documentation Completion [RC] STAT Sodium Chloride 0.9% [Saline Flush] 10 ml FLUSH ASDIRECTED PRN Blood Culture x2 Reflex Set [OM.PC] Stat Peripheral IV Insertion Adult [OM.PC] Stat 05/07/20 09:10 CULTURE BLOOD [BC] Stat PROCALCITONIN [REF] Stat 05/07/20 09:36 CULTURE BLOOD [BC] Stat 05/07/20 10:18 CULTURE URINE [RM] Stat UA W/MICROSCOPIC [URIN] Stat - Assessment/Plan Last 24 Hours: My Active Orders 05/07/20 09:05 EKG Documentation Completion [RC] STAT Sodium Chloride 0.9% [Saline Flush] 10 ml FLUSH ASDIRECTED PRN Blood Culture x2 Reflex Set [OM.PC] Stat Peripheral IV Insertion Adult [OM.PC] Stat 05/07/20 09:10 CULTURE BLOOD [BC] Stat PROCALCITONIN [REF] Stat 05/07/20 09:36 CULTURE BLOOD [BC] Stat 05/07/20 10:18 CULTURE URINE [RM] Stat UA W/MICROSCOPIC [URIN] Stat Assessment:: 1. fever 2. cough 3. nausea 4. Sepsis protocol initiated Plan: 1. Sepsis protocol initiated and followed 2. Labs completed in the ER. Results reviewed with the patient 3. Blood cultures completed 4. IV initiated in the emergency department 5. IV fluids provided 6. EKG completed in ER. 7. Rocephin 1gm given 8. UA/UC completed 9. Covid-19 testing completed in ER 10. Tylenol 650mg PO given to help reduce fever 11. Consultation completed with-Dr. Prisca Starr. Patient will be admitted to acute care for further mediation intervention and management 12. Patient and family are agreeable to the above plan of care 14. All questions and concerns were addressed with the patient and family prior to discharge
--- NOTE | 2020-05-07 10:14 | CR ---
[id number] RAD/RAD Chest PA or AP 1V EXAM: SINGLE VIEW CHEST. INDICATION: COUGH SHORTNESS OF BREATH COMPARISON: CORRELATION IS MADE WITH FEBRUARY 07, 2019 FINDINGS: There is an abnormal interstitial pattern primarily on the right The cardiac silhouette is stable IMPRESSION: ABNORMAL INTERSTITIAL PATTERN FAVORING PNEUMONIA Anurag Maurice MD 05/07/20 1014 Thank you for allowing us to participate in the care of your patient.
[2020-05-07 10:28] LABS: ANION GAP 12.9 mmol/L (10-20)
[2020-05-07] MEDS: Lidocaine 4% 1 each Patch TOP SCH ×2 (12:37→14:07)
[2020-05-07] MEDS ORDERED: Sodium Chloride 0.9% 500 ML IV SCH (13:00)
[2020-05-07] MEDS ORDERED: Bisacodyl 10 MG Supp RECTAL PRN (13:19)
[2020-05-07] MEDS ORDERED: Acetaminophen 500 MG Tab PO PRN (13:19)
[2020-05-07] MEDS ORDERED: Polyethylene Glycol 3350 Powder 17 GM Packet PO PRN (13:19)
[2020-05-07] MEDS ORDERED: Albuterol/Ipratropium 3.0-0.5 MG/3 ML Neb Soln NEB PRN (13:19)
[2020-05-07] MEDS ORDERED: Piperacillin/Tazobactam 4.5 GM in Sodium Chloride 0.9% 100 ML IV ONE (13:30)
[2020-05-07] MEDS: Doxycycline 100 MG Cap PO SCH ×2 (14:06→20:06)
[2020-05-07] MEDS: Enoxaparin 40 MG/0.4 ML Syringe SUBCUT SCH (14:07)
[2020-05-07] MEDS: Sodium Chloride 0.9% 10 ML Syringe FLUSH PRN (14:07)
[2020-05-07] MEDS: Carbidopa/Levodopa 25-100 MG Tab PO SCH ×3 (14:07→23:36)
[2020-05-07] MEDS ORDERED: hydrOXYzine HCl 25 MG Tab PO PRN (14:42)
--- NOTE | 2020-05-07 15:13 | HP ---
CHIEF COMPLAINT: Fever, chills nausea, vomiting, and feeling poorly that started abruptly at 4 a.m. this morning. HISTORY OF PRESENT ILLNESS: This is an 85-year-old male who had been healthy his entire life, and in 02/2019, presented to the ER with septic shock. Later that summer, he was diagnosed with pancreatic cancer and underwent a Whipple procedure in June, then had a wound dehiscence and required surgery again. The patient had been recovering fine, maintaining his weight, but unfortunately his tumor markers were going up slightly. He never did get any chemo. Then last month in March, he presented to the emergency room with a UTI. He was sent home on Bactrim. The patient does have a chronic cough with sputum. He does have interstitial lung disease. He is a nonsmoker. He was having tachypnea and shortness of breath in the ER, rate of 36, but never did require oxygen. His UA was showing 40 to 50 rbc's and 5 to 10 wbc's, but he did not have any burning with urination or abdominal pain. Working diagnosis was for a pneumonia. He was given IV Rocephin. His white count was over 14,000, and a decision was made to admit him to the floor for further treatments. The patient also received IV fluids in the ER, but states currently he is hungry. He feels like eating. The patient has not had any diarrhea. He got Zofran in the ER and has not had any further vomiting. ALLERGIES: None. MEDICATION LIST: 1. Vitamin C daily. 2. Aspirin 81 daily. 3. Carbidopa and levodopa. 4. Vitamin D daily. 5. Flaxseed daily. 6. Magnesium daily. 7. Mirtazapine. 8. [place]-3. 9. Tylenol p.r.n. 10.Albuterol nebs. 11.Bisacodyl suppository as needed. 12.Lasix 20 mg daily, but states it has . The patient will not need this medication here. 13.Docusate 200 to 300 daily. 14.Ibuprofen as needed. 15.Lipase, pancreatic enzymes 3 times a day with meals. 16.Multivitamin. 17.Mupirocin ointment p.r.n. 18.Prilosec every morning. 19.MiraLAX daily. PAST MEDICAL HISTORY: 1. Parkinson's, which is reported to be very mild. 2. Hyperlipidemia. 3. Anxiety. 4. Interstitial lung disease, not on oxygen. 5. Actinic keratosis. 6. Vitamin B12 deficiency. 7. Basal cell skin cancer. 8. Previous pneumonia. 9. Thyroid disease. 10.Hypoalbuminemia. 11.Anemia. 12.Polyneuropathy. PAST SURGICAL HISTORY: 1. He has had cataract surgery. 2. He has had Mohs surgery and skin surgeries. 3. He has had the ERCP and Whipple procedure. 4. Wound dehiscence surgery. FAMILY HISTORY: His mother and father are . Brother had cancer of the pancreas. SOCIAL HISTORY: Patient is . He lives at home with his . He still spends time out on the tractor, he has farmed. He has 2 children. He is a nonsmoker, nondrinker. REVIEW OF SYSTEMS: General: The patient did lose about 6 pounds with his UTI last month. He has regained that and maintaining his weight. His appetite had been good and he had been feeling well until this morning. HEENT: He has had trouble swallowing pills for many years. No new changes. Cardiac: No chest pain. No palpitations. He does have a tendency to go into atrial fibrillation when he is ill per his daughter. Respiratory: He has had a chronic cough. He has been short of breath. Musculoskeletal: He has chronic right-sided flank back pain, worse when he was sitting in the wheelchair. He has had body aches this morning along with chills. Neurologic: He has no history of dementia. He has no confusion. Otherwise, all systems reviewed and found to be negative unless otherwise stated. PHYSICAL EXAMINATION: Vital Signs: On admission, weight 68.0 kg, temp 100, T-max was reported to be around 101, pulse 95, blood pressure of 114/57, respiratory rate 28, and O2 of 92 on room air. General: He is in no acute distress. Neck: Supple without lymphadenopathy. Heart: Regular rate and rhythm with a murmur noted. Lungs: Lungs sounds are clear to auscultation in the upper bases, but he has decreased air entry and crackles noted mostly in the right base. Left lung was clear of any rhonchi, but there were fine crackles in the base. Abdomen: Positive bowel sounds. Soft, nondistended. A well-healed midline incision. Extremities: Warm and dry. No edema. Mental Status: He is alert, he is orientated x3. DIAGNOSTIC DATA: His EKG does show left bundle-branch block, similar to his previous EKG in 02/2019 when he was ill, rate was in the 90s. His chest x-ray does show bilateral patchy infiltrates, worse on the right. He does have a history of some interstitial pattern, however, clinically I feel like this has worsened since his last one. His white count is 14.9, his hemoglobin is 10.5, his platelets are 272. Sodium 135, potassium 3.9, chloride 101, bicarb 25, BUN 32, creatinine 1.3, lactic 1.3, glucose 96, calcium 8.2. Bilirubin 0.6, AST 44, ALT 21, alkaline phosphatase 228. Troponin 0.076. ProBNP 1357. Albumin 2.2. UA, again rbc's 40 to 50 wbc's 5 to 10. COVID testing negative. ASSESSMENT AND PLAN: 1. Sepsis with temperature and tachycardia and tachypnea, likely source is the pneumonia, but patient also has a history of urinary tract infection. He received IV Rocephin already. I will place him on IV Zosyn to continue. I will also give him oral doxycycline to cover for a community-acquired pneumonia. We will repeat a lactic acid now since it has been 3 hours. 2. Hhh-GE-jbnjljyni myocardial infarction due to pneumonia. The same thing happened last time he was septic. He is not having any symptoms. He will be monitored with telemetry and repeat a troponin now. 3. History of atrial fibrillation with surgeries and sepsis. He will be placed on telemetry. 4. Interstitial lung disease. The patient will continue his DuoNeb. He will be on oxygen if needed. 5. History of pancreatic cancer, now with rising levels. He is under a maintenance observation plan with Oncology. 6. Malnutrition, chronic. Diet will be encouraged. 7. Chronic anemia. Hemoglobin is stable since his visit last month. 8. History of urinary tract infection. Last culture 1 year ago showed E. coli, it would be sensitive to Zosyn, we will continue with that. 9. Parkinson disease, mild. PLAN: The patient is admitted for acute cares. He will continue on IV antibiotics with Zosyn. I will put him on Lovenox for DVT prophylaxis. I will check his lab work for inflammation markers, CRP, ESR, now with his lactic and troponin, procalcitonin has been sent out. Blood cultures and urine cultures have also been sent. Anticipate the patient will need at least a 2-day stay. He is a code level 1. This was discussed with his daughter, Linda, who is a nurse and her number is [phone]. MKA: 05/07/2020 13:33:25 MODL: 05/07/2020 15:06:44 /[id number] MTDD
[2020-05-07] MEDS ORDERED: Magnesium Sulfate/Water 4 GM in Premix Bag 1 BAG IV ONE (17:22)
[2020-05-07] MEDS: Mirtazapine 15 MG Tab PO SCH (20:06)
[2020-05-07] MEDS: Remove Patch LIDOCAINE PATCH TRDERM SCH (20:12)
[2020-05-07] MEDS: Piperacillin/Tazobactam 3.375 GM in Sodium Chloride 0.9% 100 ML IV SCH (22:14)
[2020-05-08] MEDS: Sodium Chloride 0.9% 10 ML Syringe FLUSH PRN ×2 (06:17→15:09)
[2020-05-08] MEDS: Piperacillin/Tazobactam 3.375 GM in Sodium Chloride 0.9% 100 ML IV SCH ×3 (06:21→21:56)
[2020-05-08] MEDS: Omeprazole 20 MG Cap.CR PO SCH (06:23)
[2020-05-08 08:46] LABS: CHLORIDE,CL 104 mmol/L (98-107); SODIUM,NA 136 mmol/L (136-145)
[2020-05-08 08:47] LABS: ANION GAP 10.1 mmol/L (10-20)
[2020-05-08] MEDS: Docusate Sodium 100 MG Cap PO SCH (09:24)
[2020-05-08] MEDS: Enoxaparin 40 MG/0.4 ML Syringe SUBCUT SCH (09:24)
[2020-05-08] MEDS: Carbidopa/Levodopa 25-100 MG Tab PO SCH ×4 (09:25→19:44)
[2020-05-08] MEDS: Ascorbic Acid 500 MG Tab PO SCH (09:25)
[2020-05-08] MEDS: Aspirin 81 MG Tab.EC PO SCH (09:25)
[2020-05-08] MEDS: Multivitamins with Iron/Calcium/Folic Acid/Minerals Tab PO SCH (09:25)
[2020-05-08] MEDS: Doxycycline 100 MG Cap PO SCH ×2 (09:25→19:43)
[2020-05-08] MEDS: Magnesium Oxide 400 MG Tab PO SCH (09:25)
[2020-05-08] MEDS: Lidocaine 4% 1 each Patch TOP SCH (09:26)
[2020-05-08] MEDS: Sodium Chloride 0.9% 1,000 ML IV SCH ×2 (09:26→17:07)
--- NOTE | 2020-05-08 10:14 | PN ---
Progress Note for KWABENA BROWN RICHI Date: 05/08/2020 Room #: VM.212 SUBJECTIVE: This is hospital day #2 on an 85-year-old, admitted with sepsis due to an abrupt onset of chills and vomiting. Blood cultures are already positive last evening for gram-negatives, oxidase negative consistent with possible Escherichia coli, which he had in 02/2015 when he had it also in his urine and a possible pneumonia at that time. The patient has still been coughing some. His breathing is good. He has not required oxygen. He had not really had a change in his cough prior to this. He also had not had any burning or urinary symptoms. He has been voiding okay here. His urine culture so far is showing no growth. He has been afebrile now since admission. Last temperature was a 100 yesterday morning after arrival. He was monitored with telemetry overnight. He had no events. He has had no diarrhea. He has no abdominal pain. His only concern is he did not sleep well. He still has some chronic back pain in the right flank area. Lidoderm patch did help some. Otherwise, he takes only Tylenol for that. OBJECTIVE THIS MORNING: Vital Signs: His temperature 97.9, pulse 65, blood pressure 113/66, respiratory rate 16, O2 96% on room air. General: He is in no acute distress. Heart: Regular rate and rhythm. S1 and S2 without murmur. Lungs: Sounds are clear to auscultation in the upper airways, but decreased with crackles in both bases. Abdomen: Nondistended. Positive bowel sounds. Soft, nontender. Extremities: Warm and dry. No edema. Mental Status: He is alert and orientated x3. LABORATORY WORK: This morning shows improvement in white count to 11.6, hemoglobin stable at 10, platelets 225. Sodium 136, potassium 4.1, chloride 104, bicarb 26, BUN 29, creatinine 1.1, calcium 8.1, magnesium up to 2.2, bilirubin 0.4, AST down to 41, ALT 8, alkaline phosphatase down to 177. His troponin did go up to 0.134 yesterday, but down to 0.096 now. Albumin down to 1.9. ASSESSMENT AND PLAN: 1. Sepsis secondary to gram-negative bacteremia, working diagnosis is a pneumonia. Discussed with the patient and his further evaluation for abdominal sources like abscess is needed. We will go ahead and pursue the CT scan today of chest and abdomen with contrast. 2. Gram-negative bacteremia. His urine so far has no growth. He will continue on IV Zosyn. We will await further culture which should come back tomorrow. 3. Cyi-AR-pbvipbrqi myocardial infarction due to sepsis and pneumonia. His troponins are trending down. He is having no symptoms. 4. History of atrial fibrillation. He had no events on telemetry except he was having some bigeminy. Magnesium level was quite low at 1.2. I gave him IV magnesium and this has already improved. We will continue telemetry for now. 5. Interstitial lung disease, chronic. He has DuoNebs available. He is not requiring oxygen. This does make it harder to interpret his chest x-ray. CT will be done today. 6. History of pancreatic cancer, status post Whipple procedure in the fall of 2018, with recently CEA increasing. CT scan is being done today due to his infection. 7. Malnutrition, chronic. We will get dietitian involved. I will start him on protein supplements 15 g b.i.d. 8. Chronic anemia. Hemoglobins are stable. 9. Parkinson disease, mild. PLAN: At this point, the patient will continue on acute cares. We will continue Lovenox for deep vein thrombosis prophylaxis. I will continue IV Zosyn while awaiting cultures. We will do a CT chest, abdomen, and pelvis today to further evaluate for the sources of infection. We will continue monitoring with telemetry. MKA: 05/08/2020 09:41:48 MODL: 05/08/2020 10:06:58 /[id number]
[2020-05-08] MEDS ORDERED: Iopamidol 612 MG/ML 100 ML Bottle IVPUSH ONE (12:29)
--- NOTE | 2020-05-08 15:16 | CT ---
[id number] CT/CTA Chest CT Abd Pelvis W IV Exam: CTA Chest CT Abd Pelvis W IV Clinical Data: PANCREATIC CANCER PREVIOUS WHIPPLE PROCEDURE INCREASING CA 19-9 COMPARISON: CORRELATION IS MADE WITH MARCH 08, 2020 FINDINGS: Multiple bilateral lung nodules are about the same Small bilateral effusions now are present There is no mediastinal mass. There is minimal mediastinal adenopathy The great vessels are intact Surgical changes related to the Whipple procedure are again seen There is again evidence of right-sided nephrolithiasis There is a fatty liver The abdominal aorta is ectatic but stable There is a small right renal cyst The adrenals, left kidney are unremarkable as is the spleen There is a small amount of free fluid in the pelvis The pelvis shows no mass or adenopathy IMPRESSION: NO SIGNIFICANT CHANGE SINCE LAST MARCH Anurag Maurice MD 05/08/20 1992 Thank you for allowing us to participate in the care of your patient.
[2020-05-08] MEDS: Mirtazapine 15 MG Tab PO SCH (19:44)
[2020-05-08] MEDS: Remove Patch LIDOCAINE PATCH TRDERM SCH (20:20)
[2020-05-09] MEDS: Piperacillin/Tazobactam 3.375 GM in Sodium Chloride 0.9% 100 ML IV SCH ×2 (06:16→15:26)
[2020-05-09] MEDS: Omeprazole 20 MG Cap.CR PO SCH (06:16)
[2020-05-09] MEDS: Sodium Chloride 0.9% 1,000 ML IV SCH (06:20)
[2020-05-09 07:09] LABS: CHLORIDE,CL 103 mmol/L (98-107); SODIUM,NA 136 mmol/L (136-145)
[2020-05-09] MEDS: Enoxaparin 40 MG/0.4 ML Syringe SUBCUT SCH (08:16)
[2020-05-09] MEDS: Carbidopa/Levodopa 25-100 MG Tab PO SCH ×3 (08:16→15:27)
[2020-05-09] MEDS: Aspirin 81 MG Tab.EC PO SCH (08:17)
[2020-05-09] MEDS: Magnesium Oxide 400 MG Tab PO SCH (08:17)
[2020-05-09] MEDS: Docusate Sodium 100 MG Cap PO SCH (08:31)
[2020-05-09] MEDS: Multivitamins with Iron/Calcium/Folic Acid/Minerals Tab PO SCH (08:32)
[2020-05-09] MEDS: Ascorbic Acid 500 MG Tab PO SCH (08:33)
[2020-05-09] MEDS: Lidocaine 4% 1 each Patch TOP SCH (08:33)
[2020-05-09] MEDS: Doxycycline 100 MG Cap PO SCH (08:33)
[2020-05-09 14:46] VITALS: BP 124/63; PULSE 63
[2020-05-09] MEDS: Sodium Chloride 0.9% 10 ML Syringe FLUSH PRN (15:27)
--- NOTE | 2020-05-10 08:59 | DISCH ---
PRIMARY DISCHARGE DIAGNOSES: 1. A Klebsiella pneumoniae bacteremia. 2. Sepsis secondary to Klebsiella pneumoniae bacteremia, likely source pneumonia. 3. Community-acquired pneumonia. Clinically, right lower lung, but with multiple nodules on his chest CT, which are a chronic finding, and small bilateral pleural effusions. 4. History of pancreatic cancer status post Whipple procedure in 2019. 5. Right-sided nephrolithiasis with some right flank pain that had been ongoing for quite some time, but the nephrolithiasis was noted on his CT back in March. 6. Previous history of urinary tract infections. This urine culture was negative. He did have 40-50 rbc's which could be from the stone. 7. Awx-NH-oseqogunc myocardial infarction due to sepsis and pneumonia. 8. Elevated alkaline phosphatase 228, trending down to 177 on discharge. 9. Severe hypomagnesemia, replaced IV. 2.2, normal on discharge. The patient was having some bigeminy prior to replacement. 10.Paroxysmal atrial fibrillation. The patient did have some atrial fibrillation on the morning of discharge. At the time of discharge, he was having sinus with premature atrial contractions. His rates were always controlled in the 70s. 11.Mild Parkinson's. 12.Known interstitial lung disease not on home O2. REASON FOR ADMISSION: On the date of admission, this 85-year-old male who lives at home with his , presented with nausea, vomiting, fever, chills that occurred suddenly around 4 a.m. He was seen in the emergency room and felt to have pneumonia. He was given IV Rocephin and admitted to the floor and placed on IV Zosyn. He is completing his last dose currently. The patient had a temp of a 101, but was afebrile throughout the rest of his hospital stay. By the first evening of admission, his blood cultures did grow positive 1/4 bottles for Klebsiella pneumoniae. Sputum culture was also requested and did have still preliminary gram-negative rods, gram-positive cocci, and just popped up yeast isolated which his daughter had previously mentioned was noted before. He did have a cough with sputum production. He had reported some chronic coughing in the past. The patient did have no growth on his urine culture. Because of the gram-negative bacteremia and his history of pancreatic cancer, he underwent a CT chest, abdomen, and pelvis with the findings discussed above in his discharge diagnoses. The patient otherwise had an uneventful stay. He was seen by Physical Therapy this morning and did well and was requesting to be discharged home with family. His daughter is a nurse and was present for discharge instructions. All questions were answered. The patient was eating 100% of his meals. The patient has previously tolerated Cipro as he had an admission in 02/2019 for an E coli bacteremia, which was due to pneumonia and UTI. DISCHARGE PLANS AND INSTRUCTIONS: He will see Dr. Starr in the clinic on 05/20/2020 at 10:30. He will take Cipro 500 twice daily for 12 more days. If fever, vomiting, or fast heart rates, he will return. He will eat yogurt or take a probiotic twice daily and for up to 2 weeks after antibiotics to prevent diarrhea. No lab work is due on his followup. If he remains in AFib, he may need to consider anticoagulation as he has had episodes of AFib with surgery and sepsis in the past. His oncologist was also updated as patient is due for another CT next month for surveillance due to increase Ca 19-9 levels. Greater than 30 minutes spent on the discharge process. MKA: 05/09/2020 17:06:16 MODL: 05/09/2020 21:04:52 /[id number]
== END 2020-05-09 17:50 | disposition home or self-care (01) | DRG 871 ==
LOC: VM.ED 08:45 → VM.MS 10:40
PROVIDERS: ADMIT Internal Medicine; ATTEND Family Medicine
DX: A41.59 Other Gram-negative sepsis (principal); Z98.49 Cataract extraction status, unspecified eye; J18.9 Pneumonia, unspecified organism; I21.A1 Myocardial infarction type 2; E46 Unspecified protein-calorie malnutrition; J84.9 Interstitial pulmonary disease, unspecified; E83.42 Hypomagnesemia; Z20.828 Contact with and (suspected) exposure to other viral communicable diseases; I48.0 Paroxysmal atrial fibrillation; G20 Parkinson's disease; N20.0 Calculus of kidney; E78.5 Hyperlipidemia, unspecified; E53.8 Deficiency of other specified B group vitamins; D64.9 Anemia, unspecified; F41.9 Anxiety disorder, unspecified; Z87.440 Personal history of urinary (tract) infections; Z68.21 Body mass index [BMI] 21.0-21.9, adult; Z85.07 Personal history of malignant neoplasm of pancreas; Z79.82 Long term (current) use of aspirin; Z79.899 Other long term (current) drug therapy
CPT/HCPCS: 36415; 71045; 80053; 81001; 83605; 83735; 83880; 84145; 84484; 85025; 85610; 86140; 87040 ×2; 87077; 87086; 87186; 93005; A9270; J0696; J2405; J7030; U0002; 51798; 71260; 74174; 80048; 85652; 87070; 87205; 96361; 96374; 96375; 97161-GP; 97165-GO; 97530-GP; 99284-GF; 99285-25; J1650; J2543; J3475; J7050; Q9967

== ENCOUNTER 2020-06-26 18:10 | Inpatient (IN) | payer MEDICARE, BC, OTHER ==
[2020-06-26] MEDS ORDERED: cefTRIAXone 1 GM Vial IVPUSH ONE (18:39)
[2020-06-26] MEDS ORDERED: Sodium Chloride 0.9% 1,000 ML IV ONE (18:39)
[2020-06-26] MEDS ORDERED: Acetaminophen 325 MG Tab PO ONE (18:42)
--- NOTE | 2020-06-26 18:44 | EDM.PDOC ---
<Mera Hutton - Last Filed: 06/26/20 18:50> ED HPI GENERAL MEDICAL PROBLEM - General Chief Complaint: General Stated Complaint: fever and weakness Time Seen by Provider: 06/26/20 18:15 Source of Information: Reports: Patient History Limitations: Reports: No Limitations - History of Present Illness INITIAL COMMENTS - FREE TEXT/NARRATIVE: Patient comes into the emergency department with complaint of fever and weakness.Patient's states that the patient began vomiting yesterday and has progressively declined. She states that he has been more weak and has been having a fever as well. Patient was recently hospitalized not too long ago for pneumonia. She states that he has been coughing up dark sputum Again. She states that the above symptoms Where the symptoms that had resulted when he was admitted with pneumonia previously. Patient states He has a headache, feels weak, and has a chills. Patient denies any active chest pain, shortness of breath, GI upset, peripheral edema. Patient states he has been nauseated but currently does not feel nauseated. Patient did complete his course of antibiotics and has been fairly well up to the last 24 hours. Patient and state that they have not been exposed any COVID-19 individuals that they are aware of and had not had any COVID-19 positive tests. Onset: Gradual Quality: Reports: Other Severity: Moderate Improves with: Reports: None Worsens with: Reports: None Associated Symptoms: Reports: Cough, cough w sputum, Fever/Chills, Headaches, Loss of Appetite, Malaise, Nausea/Vomiting, Weakness - Related Data Allergies Allergy/AdvReac Type Severity Reaction Status Date / Time No Known Allergies Allergy Verified 06/26/20 19:38 Home Meds: Home Meds Aspirin [Halfprin] 1 tab PO DAILY 02/07/19 [History] Carbidopa/Levodopa [Carbidopa-Levo 25-100 MG ODT] 1 tab PO QID 02/07/19 [History] Cholecalciferol (Vitamin D3) [Vitamin D3] 10,000 units PO DAILY 02/07/19 [History] Mirtazapine 15 mg PO BEDTIME 02/07/19 [History] Acetaminophen [Tylenol Extra Strength] 500 mg PO Q4H PRN 05/07/20 [History] Albuterol/Ipratropium [DuoNeb 3.0-0.5 MG/3 ML] 3 ml NEB QID PRN 05/07/20 [History] Amylase/Lipase/Protease [Creon DR 12,000 Units] 1 cap PO DAILY 05/07/20 [History] Ascorbic Acid 1,000 mg PO DAILY 05/07/20 [History] Docusate Sodium [Colace] 200 - 300 mg PO DAILY 05/07/20 [History] Multivit,Calc,Mins/Iron/Folic [Thera-M] 1 tab PO DAILY 05/07/20 [History] Mupirocin Oint [Bactroban Oint] 1 applic TOP BID PRN 05/07/20 [History] Omeprazole Magnesium [Prilosec Otc] 20 mg PO DAILY 05/07/20 [History] bisacodyL [Dulcolax] 10 mg RC DAILY PRN 05/07/20 [History] hydrOXYzine pamoate [Vistaril] 25 mg PO Q4H PRN 05/07/20 [History] polyethylene glycoL 3350 [MiraLAX] 17 gm PO DAILY PRN 05/07/20 [History] Ciprofloxacin [Ciprofloxacin HCl] 500 mg PO BID #25 tab 05/09/20 [Rx] Furosemide [Lasix] 20 mg PO DAILY PRN #15 05/09/20 [Rx] Magnesium Oxide 400 mg PO DAILY tablet 05/09/20 [Rx] Past Medical History Cardiovascular History: Reports: High Cholesterol Respiratory History: Reports: Other (See Below) Other Respiratory History: chronic "farmers" cough Endocrine/Metabolic History: Reports: Other (See Below) Other Endocrine/Metabolic History: thyroid nodule, Vitamin B12 deficiency, Protein deficiency Oncologic (Cancer) History: Reports: Basal Cell Carcinoma, Pancreatic - Past Surgical History HEENT Surgical History: Reports: Cataract Surgery, Tonsillectomy Dermatological Surgical History: Reports: Skin Biopsy ED ROS GENERAL - Review of Systems Review Of Systems: Comprehensive ROS is negative, except as noted in HPI. Constitutional: Reports: Fever, Chills, Malaise, Weakness, Decreased Appetite HEENT: Reports: No Symptoms Respiratory: Reports: Cough, Sputum Cardiovascular: Reports: No Symptoms Endocrine: Reports: No Symptoms GI/Abdominal: Reports: Decreased Appetite, Nausea, Vomiting : Reports: No Symptoms Musculoskeletal: Reports: No Symptoms Skin: Reports: No Symptoms Neurological: Reports: No Symptoms Psychiatric: Reports: No Symptoms Hematologic/Lymphatic: Reports: No Symptoms Immunologic: Reports: No Symptoms ED EXAM, GENERAL - Physical Exam Exam: See Below Exam Limited By: No Limitations General Appearance: Alert Eye Exam: Bilateral Eye: EOMI Throat/Mouth: Normal Inspection, Normal Lips, No Airway Compromise Head: Atraumatic, Normocephalic Neck: Normal Inspection, Supple, Non-Tender, Full Range of Motion Respiratory/Chest: Decreased Breath Sounds Cardiovascular: Tachycardia Peripheral Pulses: 4+: Radial (L), Radial (R) GI/Abdominal: Normal Bowel Sounds, Soft, Non-Tender Back Exam: Normal Inspection, Full Range of Motion Extremities: Normal Inspection, Normal Range of Motion, Non-Tender, No Pedal Edema, Normal Capillary Refill Neurological: Alert, Oriented, CN II-XII Intact Psychiatric: Normal Affect, Normal Mood Skin Exam: Warm, Dry, Intact, Normal Color Departure - Departure Disposition: Admitted As Inpatient 66 Clinical Impression: Weakness Pneumonia Qualifiers: Pneumonia type: due to unspecified organism Laterality: unspecified laterality Lung location: unspecified part of lung Qualified Code(s): J18.9 - Pneumonia, unspecified organism - Discharge Information Referrals: Prisca Starr DO [Primary Care Provider] - Forms: ED Department Discharge - Assessment/Plan Assessment:: 1. Sepsis protocol Plan: 1. Sepsis protocol initiated and followed 2. Labs completed in the ER. Results reviewed with the patient 3. Blood cultures completed 4. IV initiated in the emergency department 5. IV fluids provided 6. EKG completed in ER. 7. Rocephin 1gm given 8. Covid-19 testing completed 9. Influenza testing completed 10. Report given to Saeid Nevarez who will assume care <Saeid Nevarez W - Last Filed: 06/26/20 20:19> EKG INTERPRETATION Rhythm: NSR [place]: Normal P-Wave: Present QRS: Normal ST-T: Normal QT: Normal EKG Interpretation Comments: PVCs Course - Vital Signs Last Recorded V/S: Last Vital Signs Temp 37.8 C 06/26/20 18:57 Pulse 85 06/26/20 18:15 Resp 28 H 06/26/20 18:15 BP 125/59 L 06/26/20 18:15 Pulse Ox 92 L 06/26/20 18:15 - Orders/Labs/Meds Orders: Active Orders 24 hr Category Date Time Status Patient Status [ADT] Routine ADT 06/26/20 20:04 Active EKG Documentation Completion [RC] STAT Care 06/26/20 18:36 Active Chest 1V Frontal [CR] Stat Exams 06/26/20 19:04 Taken CULTURE BLOOD [BC] Stat Lab 06/26/20 18:50 Received CULTURE BLOOD [BC] Stat Lab 06/26/20 19:55 Received Azithromycin [Zithromax] 500 mg Med 06/26/20 20:02 Active Sodium Chloride 0.9% [Normal Saline (AdvBag)] 250 ml IV STAT Sodium Chloride 0.9% [Normal Saline] 1,000 ml Med 06/26/20 18:39 Active IV ONETIME Sodium Chloride 0.9% [Saline Flush] Med 06/26/20 18:33 Active 10 ml FLUSH ASDIRECTED PRN Blood Culture x2 Reflex Set [OM.PC] Stat Oth 06/26/20 18:36 Ordered Peripheral IV Insertion Adult [OM.PC] Stat Oth 06/26/20 18:33 Ordered Medication Orders Sodium Chloride (Normal Saline) 1,000 mls @ 125 mls/hr IV ONETIME ONE Stop: 06/27/20 02:38 Last Admin: 06/26/20 18:55 Dose: 125 mls/hr Documented by: SHYANN Azithromycin 500 mg/ Sodium (Chloride) 250 mls @ 250 mls/hr IV STAT ONE Stop: 06/26/20 21:01 Sodium Chloride (Saline Flush) 10 ml FLUSH ASDIRECTED PRN PRN Reason: Keep Vein Open Labs: Laboratory Tests 06/26/20 06/26/20 06/26/20 Range/Units 18:40 18:50 18:50 WBC 17.5 H (4.0-10.0) x10^3/uL RBC 3.31 L (4.5-6.0) x10^6/uL Hgb 10.7 L (14.0-18.0) g/dL Hct 32.2 L (40.0-52.0) % MCV 97.3 H (78.0-93.0) fL MCH 32.3 H (26.0-32.0) pg MCHC 33.2 (32.0-36.0) g/dL RDW Coeff of Angelique 12.8 (10.0-15.0) % Plt Count 323 (130-400) x10^3/uL Neut % (Auto) 86.2 H (50.0-80.0) % Lymph % (Auto) 4.5 L (25.0-50.0) % Mcminn % (Auto) 9.0 (2.0-11.0) % Eos % (Auto) 0.2 (0.0-4.0) % Baso % (Auto) 0.1 L (0.2-1.2) % Sodium 135 L (136-145) mmol/L Potassium 3.9 (3.5-5.1) mmol/L Chloride 99 (98-107) mmol/L Carbon Dioxide 27 (21-32) mmol/L Anion Gap 12.9 (10-20) mmol/L BUN 37 H (7-18) mg/dL Creatinine 1.1 (0.70-1.30) mg/dL Est Cr Clr Drug Dosing TNP Estimated GFR (MDRD) > 60 Glucose 121 H (74-106) mg/dL Lactic Acid (0.4-2.0) mmol/L Calcium 8.9 (8.5-10.1) mg/dL Corrected Calcium 10.34 H (8.5-10.1) mg/dL Total Bilirubin 0.4 (0.2-1.0) mg/dL AST 21 (15-37) U/L ALT 8 L (16-63) U/L Alkaline Phosphatase 160 H (46-116) U/L Troponin I < 0.017 (<=0.056) ng/mL NT-Pro-B Natriuret Pep 1597 H (<=450) pg/mL Total Protein 7.9 (6.4-8.2) g/dL Albumin 2.2 L (3.4-5.0) g/dL Globulin 5.7 Albumin/Globulin Ratio 0.39 SARS CoV-2 RNA Rapid ANDERS Negative (NEGATIVE) 06/26/20 Range/Units 18:50 WBC (4.0-10.0) x10^3/uL RBC (4.5-6.0) x10^6/uL Hgb (14.0-18.0) g/dL Hct (40.0-52.0) % MCV (78.0-93.0) fL MCH (26.0-32.0) pg MCHC (32.0-36.0) g/dL RDW Coeff of Angelique (10.0-15.0) % Plt Count (130-400) x10^3/uL Neut % (Auto) (50.0-80.0) % Lymph % (Auto) (25.0-50.0) % Mcminn % (Auto) (2.0-11.0) % Eos % (Auto) (0.0-4.0) % Baso % (Auto) (0.2-1.2) % Sodium (136-145) mmol/L Potassium (3.5-5.1) mmol/L Chloride (98-107) mmol/L Carbon Dioxide (21-32) mmol/L Anion Gap (10-20) mmol/L BUN (7-18) mg/dL Creatinine (0.70-1.30) mg/dL Est Cr Clr Drug Dosing Estimated GFR (MDRD) Glucose (74-106) mg/dL Lactic Acid 1.4 (0.4-2.0) mmol/L Calcium (8.5-10.1) mg/dL Corrected Calcium (8.5-10.1) mg/dL Total Bilirubin (0.2-1.0) mg/dL AST (15-37) U/L ALT (16-63) U/L Alkaline Phosphatase (46-116) U/L Troponin I (<=0.056) ng/mL NT-Pro-B Natriuret Pep (<=450) pg/mL Total Protein (6.4-8.2) g/dL Albumin (3.4-5.0) g/dL Globulin Albumin/Globulin Ratio SARS CoV-2 RNA Rapid ANDERS (NEGATIVE) Meds: Medications Generic Name Dose Route Start Last Admin Trade Name Freq PRN Reason Stop Dose Admin Sodium Chloride 1,000 mls @ 125 mls/hr 06/26/20 18:39 06/26/20 18:55 Normal Saline IV 06/27/20 02:38 125 mls/hr ONETIME ONE Administration Azithromycin 500 mg/ Sodium 250 mls @ 250 mls/hr 06/26/20 20:02 Chloride IV 06/26/20 21:01 STAT ONE Sodium Chloride 10 ml 06/26/20 18:33 Saline Flush FLUSH ASDIRECTED PRN Keep Vein Open Discontinued Medications Generic Name Dose Route Start Last Admin Trade Name Rylee PRN Reason Stop Dose Admin Acetaminophen 650 mg 06/26/20 18:42 06/26/20 18:57 Tylenol PO 06/26/20 18:43 650 mg NOW ONE Administration Ceftriaxone Sodium 1 gm 06/26/20 18:39 06/26/20 18:56 Rocephin IVPUSH 06/26/20 18:40 1 gm ONETIME ONE Administration - Radiology Interpretation Free Text/Narrative:: bilateral multi-lobar infiltrates noted. Departure - Departure Time of Disposition: 20:11 Sepsis Event Note (ED) - Focused Exam Vital Signs: Vital Signs Temp Temp Pulse Resp BP Pulse Ox 06/26/20 18:57 37.8 C 06/26/20 18:15 37.8 C 85 28 H 125/59 L 92 L - Problem List Review Problem List Initiated/Reviewed/Updated: Yes - My Orders Last 24 Hours: My Active Orders 06/26/20 20:02 Azithromycin [Zithromax] 500 mg Sodium Chloride 0.9% [Normal Saline (AdvBag)] 250 ml IV STAT 06/26/20 20:04 Patient Status [ADT] Routine - Assessment/Plan Last 24 Hours: My Active Orders 06/26/20 20:02 Azithromycin [Zithromax] 500 mg Sodium Chloride 0.9% [Normal Saline (AdvBag)] 250 ml IV STAT 06/26/20 20:04 Patient Status [ADT] Routine Plan: Bilteral infiltrates as noted by radioloist. This is consistent with his physical exam; he has quite a bit on rhonchi, particularly in the R base. Pt. had been given rocephin by Mera Hutton NP, so given azithromycin 500mg IV to cover for atypical pathogens. Discussed findings with family. Pt. will be admitted acutely by Dr. Starr. Pt. is a code 2, DNR/DNI.
[2020-06-26 19:37] LABS: CHLORIDE,CL 99 mmol/L (98-107); SODIUM,NA 135 mmol/L (136-145)
[2020-06-26 19:45] LABS: ANION GAP 12.9 mmol/L (10-20)
[2020-06-26] MEDS ORDERED: Azithromycin 500 MG in Sodium Chloride 0.9% 250 ML IV ONE (20:02)
[2020-06-26] MEDS ORDERED: Albuterol/Ipratropium 3.0-0.5 MG/3 ML Neb Soln NEB PRN ×2 (21:12→21:42)
[2020-06-26] MEDS ORDERED: Ondansetron 4 MG Tab.DIS PO PRN (21:12)
[2020-06-26] MEDS ORDERED: Ondansetron 4 MG/2 ML SDV IV PRN (21:12)
[2020-06-26] MEDS ORDERED: Magnesium Sulfate/Water 4 GM in Premix Bag 1 BAG IV ONE (21:26)
[2020-06-26] MEDS ORDERED: Mirtazapine 15 MG Tab PO ONE (21:30)
[2020-06-26] MEDS ORDERED: hydrOXYzine HCl 25 MG Tab PO PRN (21:42)
[2020-06-26] MEDS ORDERED: Polyethylene Glycol 3350 Powder 17 GM Packet PO PRN (21:42)
[2020-06-26] MEDS ORDERED: Acetaminophen 500 MG Tab PO PRN (21:42)
[2020-06-26] MEDS ORDERED: Bisacodyl 10 MG Supp RECTAL PRN (21:42)
[2020-06-26] MEDS ORDERED: Carbidopa/Levodopa 25-100 MG Tab PO PRN (22:45)
--- NOTE | 2020-06-26 23:05 | HP ---
CHIEF COMPLAINT: Vomiting, weakness, and fever. HISTORY OF PRESENT ILLNESS: This is an 85-year-old male who early in May was admitted with a similar illness with fever and found to have Klebsiella bacteremia, Klebsiella also in his sputum, so likely source was felt to be a community-acquired pneumonia. He was treated then with a 14 day course of quinolones. Unfortunately, towards the end, he developed some tendinitis and did end up stopping a few days early. Then, few weeks later, the patient had another episode of fever and was treated through the clinic over the phone communication with Kumar and unfortunately had recently found out by PET scan that his pancreatic cancer he had surgery for last year had returned, and they are planning to do some palliative chemotherapy. The patient was up all night last night vomiting. Today, he was so weak, it took both his children to help him move around. He has been coughing up some yellow sputum and he even does suction. It has been coming on in the last 2 weeks. He has not had any increased shortness of breath. The patient has not had any abdominal pain, nausea, or diarrhea. He is not having any chest pain. He does have a history of interstitial lung disease. He has a previous history of pneumonia. He did have a fever prior to admission as well. He has not had any burning with urination. ALLERGIES: None. MEDICATION LIST: Reviewed. He currently takes some inhalers and nebulizers at home, but he does not use them very frequently. He takes Remeron 15 mg at bedtime, Tylenol as needed, Creon enzymes, vitamin C 1000 daily, aspirin 81 mg daily, Bisacodyl p.r.n. suppositories, carbidopa-levodopa q.i.d., vitamin D3, senna 200 to 300 daily, Lasix 20 mg daily, hydroxyzine 25 mg every 4 hours p.r.n., Mag-Ox 250 daily, Remeron 15 mg daily, multivitamin daily, Bactroban ointment p.r.n., Prilosec 20 mg daily, and MiraLAX 17 g daily. 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 PAST SURGICAL HISTORY: He has had cataract surgery. He has had Mohs. He has had an ERCP and a Whipple. He had wound dehiscence after surgery last fall but recovered. FAMILY HISTORY: His mother and father both . Brother had cancer of the pancreas. SOCIAL HISTORY: He is . He lives at home with his . 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 His daughter is an ER nurse. He is a nonsmoker, nondrinker. REVIEW OF SYSTEMS: General: The patient has had further weight loss over the last month. He has had fever. He had been generally though feeling well up until last evening when he started with the vomiting. HEENT: He has had no trouble with sore throat. He has no new trouble with swallowing. Cardiac: No chest pain. No palpitations. In the past, he has had some atrial fibrillation per his family on the last admission. Respiratory: He has had a cough. He has not had increased shortness of breath. Musculoskeletal: He has not had no new aches or pains. Neurologic: He has not been overly confused, but he does get quite anxious when his is not with him. Otherwise, all systems reviewed and found to be negative unless otherwise stated. PHYSICAL EXAMINATION: Vital Signs: He has a temperature of 100.1, weight 64.4 kg. On his last admission, his weight was actually 68 kg, so he has lost 8 pounds in just over a month. Pulse 85, blood pressure 125/59, respiratory rate 28, and O2 of 92 on room air. General: He is in no acute distress. Heart: Regularly irregular. Lungs: Lung sounds are slightly decreased over the right but no crackles. No wheezes. Abdomen: Positive bowel sounds. Soft, nontender. Extremities: Warm and dry. No edema. Skin: Generally pale. Mental Status: He is alert. He is orientated x3. He is polite, cooperative. He is making jokes. DATA: EKG does show bigeminy. Chest x-ray shows rather extensive infiltrate in the right upper lobe, which is new when compared to the last x-ray. His laboratory work shows white count of 17.5 with 86% neutrophils; hemoglobin is 10.7, which is within his range; and platelets are 323. Sodium 135, potassium 3.9, chloride 99, bicarbonate 27, BUN 37, creatinine 1.1, glucose 121, lactic 1.4, calcium 8.9, magnesium 1.4, AST 21, ALT 8, and alkaline phosphatase 160. Troponin negative. ProBNP 1597, albumin 2.2. SARS negative. ASSESSMENT AND PLAN: 1. Pneumonia with recent admission for pneumonia but also vomiting. There is some concern for aspiration pneumonitis. At this point, the patient has received the intravenous Rocephin and intravenous Zithromax. We will continue with the same treatments and follow cultures. If he spikes fevers, I will switch him over to intravenous Zosyn. 2. Sepsis with tachycardia and temperatures due to the pneumonia. Given the patient's overall condition and underlying cancer and discussion for compassionate and palliative cares, we will not be repeating a lactic acid in 3 hours, but we will repeat it in the morning. He also does get quite confused during the night per his family, and we will have his stay to be one-on-one with him. 3. History of atrial fibrillation. The patient will be monitored with telemetry. 4. Severe hypomagnesemia and bigeminy. We have actually stopped his Zithromax and will be giving him the intravenous magnesium first. 5. Known interstitial lung disease. He will continue to have nebulizers available. 6. Pancreatic cancer recurrence with metastasis. He is following with Oncology. He is planning some palliative chemotherapy. He is aware that this will need to wait until he recovers from this illness. 7. Chronic malnutrition. Diet will be ordered and encouraged. 8. Chronic anemia. Hemoglobins are stable. 9. Parkinson disease, mild. PLAN: The patient is admitted for acute cares for IV fluids. We will continue IV antibiotics. We will replace his magnesium IV, and we will repeat laboratory work tomorrow. We will have him on telemetry. The patient elects to be a code level 1. He would want to be transferred to [place] for further cares but understands that if his condition worsens, he would be a candidate for comfort measures and family has even been told about considering hospice from his oncologist. DVT prophylaxis, he will be placed on Lovenox. If continued vomiting we will get abdominal x-rays. MKA: 06/26/2020 21:41:42 MODL: 06/26/2020 22:58:50 /[id number] [place]
[2020-06-27] MEDS: Omeprazole 20 MG Cap.CR PO SCH (06:12)
[2020-06-27 07:42] LABS: CHLORIDE,CL 101 mmol/L (98-107); SODIUM,NA 137 mmol/L (136-145)
[2020-06-27] MEDS: Docusate Sodium 100 MG Cap PO SCH (07:44)
[2020-06-27] MEDS: Aspirin 81 MG Tab.EC PO SCH (07:44)
[2020-06-27] MEDS: Acetaminophen 325 MG Tab PO PRN (07:44)
[2020-06-27] MEDS: Enoxaparin 40 MG/0.4 ML Syringe SUBCUT SCH (07:44)
[2020-06-27] MEDS: Ascorbic Acid 500 MG Tab PO SCH (07:44)
[2020-06-27] MEDS: Multivitamins with Iron/Calcium/Folic Acid/Minerals Tab PO SCH (07:45)
[2020-06-27] MEDS: Magnesium Oxide 400 MG Tab PO SCH (07:45)
--- NOTE | 2020-06-27 07:45 | CR ---
[id number] RAD/RAD Chest PA or AP 1V EXAM: RAD Chest PA or AP 1V INDICATION: DIMINISHED BREATH SOUNDS. COMPARISON: May 07, 2020. DISCUSSION: Cardiomediastinal silhouette is normal in size and contour. Patchy airspace opacifications bilaterally, right greater than left. IMPRESSION: Patchy airspace opacifications bilaterally, right greater than left. Findings are most likely infectious/inflammatory in nature. Fede Rivera DO 06/27/20 0744 Thank you for allowing us to participate in the care of your patient.
[2020-06-27 07:46] LABS: ANION GAP 12.8 mmol/L (10-20)
[2020-06-27] MEDS: Carbidopa/Levodopa 25-100 MG Tab PO SCH ×4 (09:02→21:32)
[2020-06-27] MEDS: CHOLECALCIFEROL 5000 UNIT PO SCH (16:21)
[2020-06-27] MEDS: LIPASE PO SCH (17:10)
[2020-06-27] MEDS: AMYLASE PO SCH (17:10)
[2020-06-27] MEDS: PROTEASE PO SCH (17:10)
[2020-06-27] MEDS: Sodium Chloride 0.9% 10 ML Syringe FLUSH PRN ×2 (17:12→21:28)
[2020-06-27] MEDS ORDERED: cefTRIAXone 1 GM Vial IVPUSH SCH (18:00)
[2020-06-27] MEDS ORDERED: Azithromycin 250 MG Tab PO SCH (18:00)
--- NOTE | 2020-06-27 18:58 | PN ---
Progress Note for KWABENA BROWN RICHI Date: 06/27/2020 Room #: VM.205 SUBJECTIVE: This is hospital day #2 on an 85-year-old admitted with a community- acquired pneumonia. The patient was having fever, weakness, and vomiting. In fact, he vomited once also during the night, but he tells me it was more of a spit up, the same yellow sputum that he has been having at home. He has been afebrile now since admission. Last temperature 100.1 at 7 p.m. last evening. He is still coughing, but overall it is improving. His shortness of breath is improving. His appetite is good. He ate 100% of breakfast. says it is better than he ate at home. The patient has no abdominal pain. He has known recurrent pancreatic cancer and was actually due to start some chemo treatment this week. OBJECTIVE: Vital Signs: His temperature is 98.1, pulse 60, blood pressure 141/51, respiratory rate 17, and O2 of 98% on room air. General: He is in no acute distress. Heart: Regular rate and rhythm. He has some rhonchi noted in both the right upper and lower lobes, but none noted on the left. Abdomen: Positive bowel sounds. Soft, nontender. Extremities: Warm and dry. No edema. Skin: He is quite cachectic, but he has no skin rashes. Mental Status: He is alert, he is orientated x3. LABORATORY DATA: White count 13.8, hemoglobin 10.6, and platelets 295. INR 1.1. Sodium 137, potassium 3.8, chloride 101, bicarb 27, BUN 32, creatinine 1, glucose 85, lactic 1, calcium 8.4, magnesium 2.3, bilirubin 0.4, AST 20, ALT 7, alkaline phosphatase 142, albumin down to 2, and his urine returned with 5 to 10 rbc's and no wbc's. Blood cultures negative. Sputum culture is showing gram- positive rods and gram-positive cocci. ASSESSMENT: 1. Community-acquired pneumonia. The patient is clinically improving on the IV Rocephin and Zithromax. The Zithromax is now oral. We will continue with the same and repeat lab work in the morning. He is not hypoxic. There are no indications for a chest x-ray to be repeated. 2. Sepsis with tachycardia and temperatures due to the pneumonia, this is improving. We will go ahead and stop IV fluids as he is able to eat and drink on his own and is not hypotensive. 3. History of atrial fibrillation. He has been monitored with telemetry. He has had no events. 4. Severe hypomagnesemia, replaced IV. He is no longer having bigeminy. We will continue his oral supplements. 5. Known interstitial lung disease. He is on nebulizers. 6. Pancreatic cancer with recurrence and metastasis. He is following with Oncology. They have already postponed his chemo for 1 week. I have also sent a note off to his primary oncologist, Dr. Mccloud. 7. Chronic malnutrition. We are encouraging a diet. 8. Chronic anemia. His hemoglobin is stable at 10.6. 9. Parkinson disease, mild. We will continue home medications. PLAN: At this point, the patient will continue acute cares with IV Rocephin and oral Zithromax. He will be off IV fluids and will encourage a diet. We will repeat lab work tomorrow. We will continue telemetry monitoring and he is on Lovenox for DVT prophylaxis. Due to his history of sundowning and delirium, his is going to be staying with him for one-on-one assistance during the night. MKA: 06/27/2020 18:08:29 MODL: 06/27/2020 18:54:09 /[id number]
[2020-06-27] MEDS ORDERED: Mirtazapine 15 MG Tab PO SCH (20:00)
[2020-06-28] MEDS: Acetaminophen 325 MG Tab PO PRN ×2 (03:37→09:49)
[2020-06-28 06:16] VITALS: BP 127/57; PULSE 68
[2020-06-28] MEDS: Omeprazole 20 MG Cap.CR PO SCH (07:02)
[2020-06-28 07:25] LABS: CHLORIDE,CL 101 mmol/L (98-107); SODIUM,NA 136 mmol/L (136-145)
[2020-06-28 07:26] LABS: ANION GAP 12.7 mmol/L (10-20)
[2020-06-28] MEDS: Docusate Sodium 100 MG Cap PO SCH (09:48)
[2020-06-28] MEDS: Magnesium Oxide 400 MG Tab PO SCH (09:48)
[2020-06-28] MEDS: Ascorbic Acid 500 MG Tab PO SCH (09:48)
[2020-06-28] MEDS: Multivitamins with Iron/Calcium/Folic Acid/Minerals Tab PO SCH (09:48)
[2020-06-28] MEDS: Aspirin 81 MG Tab.EC PO SCH (09:49)
[2020-06-28] MEDS: Enoxaparin 40 MG/0.4 ML Syringe SUBCUT SCH (09:49)
[2020-06-28] MEDS: PROTEASE PO SCH (09:51)
[2020-06-28] MEDS: AMYLASE PO SCH (09:51)
[2020-06-28] MEDS: LIPASE PO SCH (09:51)
[2020-06-28] MEDS: CHOLECALCIFEROL 5000 UNIT PO SCH (09:52)
[2020-06-28] MEDS: Carbidopa/Levodopa 25-100 MG Tab PO SCH (10:11)
--- NOTE | 2020-06-28 21:33 | DISCH ---
PRIMARY DISCHARGE DIAGNOSES: 1. A community-acquired multifocal, multilobar pneumonia. Culture showing Staphylococcus coagulase negative, likely a contaminant and yeast. 2. Sepsis secondary to pneumonia, resolved. He received intravenous fluids. 3. Severe hypomagnesemia with bigeminy, replaced intravenous and orally, improved. 4. History of atrial fibrillation. He had no events of atrial fibrillation on telemetry. 5. History of interstitial lung disease, stable. He is not on home oxygen chronically. He does, however, use nebulizers and suction. 6. Pancreatic cancer with recent recurrence and metastasis. He is following up with Oncology and planning to start some chemo, but that has been postponed for a week. 7. Chronic malnutrition and cachexia with recent weight loss of 8 pounds due to cancer. The patient was eating well and tolerating a diet here. 8. Generalized weakness and deconditioning probably due to his acute illness. He was able to get up and work with therapy. It is felt that he will be able to return home with the assistance of his . He also has 2 children who live nearby. 9. 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 REASON FOR ADMISSION: On the date of admission, this 85-year-old male who normally lives at home had been up vomiting. On the previous night, he had been feeling weak and having fevers throughout the day. Finally, his family was able to get him into the hospital. The patient otherwise had been coughing. He had been coughing up more yellow stuff over at least the last few days, maybe even weeks. He has a previous history of blood cultures positive from pneumonia with Klebsiella on his last admission over a month ago. The patient was initially given the IV Rocephin. He was also started on IV Zithromax for community- acquired pneumonia treatments. The patient remained afebrile throughout the rest of his hospital course. He was given Lovenox for DVT prophylaxis. His was allowed to stay with him as a 1 on 1 caregiver due to his history or concern for delirium without her present. He was given IV magnesium and that level did improve up to 2.3 on discharge. His creatinine, kidney function all remained stable. His hemoglobin was stable at 10.3. His white count improved from 17.5 to 11.7. Urine was checked. He had just 5-10 rbc's, no wbc's. COVID testing was negative. DISCHARGE PLANS AND INSTRUCTIONS: The patient is to follow up with Dr. Starr in the clinic in 1 to 2 weeks' time for a post hospital followup. He will be on Augmentin 875 twice daily for 11 more doses. He is to use his suction at home. We talked about increasing Prilosec to twice daily because he did report some burning and it was felt that potentially he could be having some GERD. He will take yogurt twice daily to prevent any diarrhea. No lab work will be due for myself, but he was encouraged to follow up with Dr. Mccloud of Oncology, who will likely have lab work planned for him. Greater than 30 minutes spent on the discharge process. MKA: 06/28/2020 18:42:23 MODL: 06/28/2020 21:24:33 /[id number]
--- NOTE | 2020-06-29 18:35 | PCM.SN.2 ---
- Free Text/Narrative Note: Addendum that he had a small sacral ulcer present on admit noted during his stay. It was not felt to be a source of infection.
== END 2020-06-28 10:00 | disposition home or self-care (01) | DRG 871 ==
LOC: VM.ED 18:10 → VM.MS 20:04
PROVIDERS: ADMIT Internal Medicine; ATTEND Internal Medicine
DX: R11.2 Nausea with vomiting, unspecified (principal); A41.9 Sepsis, unspecified organism; J18.9 Pneumonia, unspecified organism; C25.9 Malignant neoplasm of pancreas, unspecified; E78.00 Pure hypercholesterolemia, unspecified; E04.1 Nontoxic single thyroid nodule; E53.8 Deficiency of other specified B group vitamins; E46 Unspecified protein-calorie malnutrition; Z85.828 Personal history of other malignant neoplasm of skin; Z85.07 Personal history of malignant neoplasm of pancreas; Z98.49 Cataract extraction status, unspecified eye; Z98.890 Other specified postprocedural states; J84.9 Interstitial pulmonary disease, unspecified; Z66 Do not resuscitate; Z20.828 Contact with and (suspected) exposure to other viral communicable diseases; E83.42 Hypomagnesemia; I48.91 Unspecified atrial fibrillation; R53.1 Weakness; G20 Parkinson's disease; L98.429 Non-pressure chronic ulcer of back with unspecified severity; D64.9 Anemia, unspecified; E78.5 Hyperlipidemia, unspecified; Z79.82 Long term (current) use of aspirin; Z79.899 Other long term (current) drug therapy; Z68.20 Body mass index [BMI] 20.0-20.9, adult
CPT/HCPCS: 36415; 71045; 80048; 80053; 81001; 83605; 83735; 83880; 84484; 85025; 85610; 85652; 87040; 87070; 87205; 87804; 87804-59; 93005; 93010; 96361; 96374; 97161-GP; 99284; 99285-25; A9270-GY; J0456; J0696; J1650; J2405; J3475; J7030; J7050; U0002

== ENCOUNTER 2020-07-09 11:29 | Emergency (ER) | payer MEDICARE, BC ==
[2020-07-09] MEDS ORDERED: Ondansetron 4 MG/2 ML SDV IVPUSH ONE (11:44)
[2020-07-09] MEDS ORDERED: Sodium Chloride 0.9% 1,000 ML IV SCH (11:45)
--- NOTE | 2020-07-09 12:09 | EDM.PDOC ---
ED HPI GENERAL MEDICAL PROBLEM - General Chief Complaint: Gastrointestinal Problem Stated Complaint: vomiting/weakness Time Seen by Provider: 07/09/20 11:35 Source of Information: Reports: Patient, Family History Limitations: Reports: No Limitations - History of Present Illness INITIAL COMMENTS - FREE TEXT/NARRATIVE: Patient presents to ER with complaints of vomiting, weakness the last 2 days. He had chemo on Saturday for pancreatic cancer with mets to the liver. First chemo round. Had a whipple procedure last May and was not "strong enough for chemo at that time". Found to have return of the cancer one month ago so planned for chemo to contain. He started running a fever around 100-101 on . Contacted [facility] and were advised to monitor his symptoms, treat his fever but if symptoms persisted, may need IV fluids and labs. Daughter states she has been giving him tylenol. Trying to push fluids. states he has a large emesis each morning and mostly "just phlegm and bile after that". Not eating well. Did have oatmeal this am. Daughter also notes his oxygen levels have dropped at times to 88% on room air. 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 Onset: Gradual Duration: Day(s): Location: Reports: Abdomen, Generalized Severity: Moderate Associated Symptoms: Reports: Cough, cough w sputum, Fever/Chills, Loss of Appetite, Nausea/Vomiting, Weakness. Denies: Confusion, Chest Pain, Shortness of Breath Treatments FIELD ACCOUNT MANAGER: Reports: Acetaminophen - Related Data Allergies Allergy/AdvReac Type Severity Reaction Status Date / Time ciprofloxacin AdvReac Joint Pain Verified 07/09/20 14:51 Home Meds: Home Meds Aspirin [Halfprin] 1 tab PO DAILY 02/07/19 [History] Carbidopa/Levodopa [Carbidopa-Levo 25-100 MG ODT] 1 tab PO QID 02/07/19 [History] Cholecalciferol (Vitamin D3) [Vitamin D3] 10,000 units PO DAILY 02/07/19 [History] Mirtazapine 15 mg PO BEDTIME 02/07/19 [History] Acetaminophen [Tylenol Extra Strength] 500 mg PO Q4H PRN 05/07/20 [History] Albuterol/Ipratropium [DuoNeb 3.0-0.5 MG/3 ML] 3 ml NEB QID PRN 05/07/20 [History] Amylase/Lipase/Protease [[place] DR 12,000 Units] 3 cap PO TID 05/07/20 [History] Ascorbic Acid 1,000 mg PO DAILY 05/07/20 [History] Docusate Sodium [Colace] 200 - 300 mg PO DAILY 05/07/20 [History] Multivit,Calc,Mins/Iron/Folic [Thera-M] 1 tab PO DAILY 05/07/20 [History] Mupirocin Oint [Bactroban Oint] 1 applic TOP BID PRN 05/07/20 [History] bisacodyL [Dulcolax] 10 mg RC DAILY PRN 05/07/20 [History] hydrOXYzine pamoate [Vistaril] 25 mg PO Q4H PRN 05/07/20 [History] polyethylene glycoL 3350 [MiraLAX] 17 gm PO DAILY PRN 05/07/20 [History] Furosemide [Lasix] 20 mg PO DAILY 06/26/20 [History] Magnesium Oxide 250 mg PO DAILY 06/26/20 [History] Amoxicillin/Clavulanate K [Augmentin 875-125 MG] 1 tab PO BID #11 tablet 06/28/20 [Rx] Omeprazole Magnesium [Prilosec Otc] 20 mg PO BID #60 06/28/20 [Rx] Ondansetron [Zofran ODT] 4 mg PO Q4H PRN #20 tab.dis 06/28/20 [Rx] Past Medical History Cardiovascular History: Reports: High Cholesterol Respiratory History: Reports: Other (See Below) Other Respiratory History: chronic "farmers" cough Endocrine/Metabolic History: Reports: Other (See Below) Other Endocrine/Metabolic History: thyroid nodule, Vitamin B12 deficiency, Protein deficiency Oncologic (Cancer) History: Reports: Basal Cell Carcinoma, Pancreatic - Past Surgical History HEENT Surgical History: Reports: Cataract Surgery, Tonsillectomy Dermatological Surgical History: Reports: Skin Biopsy Social & Family History - Tobacco Use Smoking Status *Q: Unknown Ever Smoked - Caffeine Use Caffeine Use: Reports: Coffee ED ROS GENERAL - Review of Systems Review Of Systems: See Below Constitutional: Reports: Fever, Chills, Malaise, Weakness, Fatigue, Decreased Appetite HEENT: Reports: Rhinitis. Denies: Ear Pain, Throat Pain Respiratory: Reports: Shortness of Breath, Cough, Sputum Cardiovascular: Denies: Chest Pain, Edema, Lightheadedness Endocrine: Reports: Fatigue GI/Abdominal: Reports: Decreased Appetite, Vomiting. Denies: Abdominal Pain, Constipation, Diarrhea, Nausea : Reports: No Symptoms Musculoskeletal: Reports: No Symptoms Skin: Reports: Pallor Neurological: Reports: Weakness ED EXAM, GI/ABD - Physical Exam Exam: See Below Exam Limited By: No Limitations General Appearance: Alert, WD/WN, No Apparent Distress Ears: Normal External Exam, Normal TMs Nose: Normal Inspection, Normal Mucosa, No Blood Throat/Mouth: Normal Inspection, Other (mucous membranes dry) Head: Normocephalic Neck: Normal Inspection, Supple, Non-Tender Respiratory/Chest: Lungs Clear, Decreased Breath Sounds Cardiovascular: Regular Rate, Rhythm GI/Abdominal Exam: Normal Bowel Sounds, Soft, Non-Tender Extremities: Normal Inspection, No Pedal Edema Neurological: Alert, Oriented Skin Exam: Warm, Dry, Pallor Course - Orders/Labs/Meds Orders: Active Orders 24 hr Category Date Time Status CULTURE BLOOD [BC] Stat Lab 07/09/20 12:45 Received CULTURE BLOOD [BC] Stat Lab 07/09/20 12:53 Received CULTURE URINE [RM] Stat Lab 07/09/20 13:05 Received Sodium Chloride 0.9% [Normal Saline] 1,000 ml Med 07/09/20 11:45 Active IV ASDIRECTED Blood Culture x2 Reflex Set [OM.PC] Stat Oth 07/09/20 12:38 Ordered Medication Orders Sodium Chloride (Normal Saline) 1,000 mls @ 150 mls/hr IV ASDIRECTED [facility] Last Admin: 07/09/20 12:17 Dose: 150 mls/hr Documented by: SHYANN Labs: Laboratory Tests 07/09/20 07/09/20 07/09/20 Range/Units 11:56 11:56 11:56 WBC 13.5 H (4.0-10.0) x10^3/uL RBC 3.15 L (4.5-6.0) x10^6/uL Hgb 9.8 L (14.0-18.0) g/dL Hct 31.0 L (40.0-52.0) % MCV 98.4 H (78.0-93.0) fL MCH 31.1 (26.0-32.0) pg MCHC 31.6 L (32.0-36.0) g/dL RDW Coeff of Angelique 13.1 (10.0-15.0) % Plt Count 418 H D (130-400) x10^3/uL Neut % (Auto) 96.0 H (50.0-80.0) % Lymph % (Auto) 3.0 L (25.0-50.0) % Hawkins % (Auto) 0.3 L (2.0-11.0) % Eos % (Auto) 0.6 (0.0-4.0) % Baso % (Auto) 0.1 L (0.2-1.2) % Sodium 135 L (136-145) mmol/L Potassium 4.5 (3.5-5.1) mmol/L Chloride 99 (98-107) mmol/L Carbon Dioxide 31 (21-32) mmol/L Anion Gap 9.5 L (10-20) mmol/L BUN 51 H (7-18) mg/dL Creatinine 1.4 H (0.70-1.30) mg/dL Est Cr Clr Drug Dosing TNP Estimated GFR (MDRD) 48 Glucose 127 H (74-106) mg/dL Lactic Acid (0.4-2.0) mmol/L Calcium 9.5 (8.5-10.1) mg/dL Corrected Calcium 11.10 H (8.5-10.1) mg/dL Magnesium (1.8-2.4) mg/dL Total Bilirubin 0.5 (0.2-1.0) mg/dL AST 25 (15-37) U/L ALT 6 L (16-63) U/L Alkaline Phosphatase 124 H (46-116) U/L C-Reactive Protein 33.4 H (<=0.9) mg/dL NT-Pro-B Natriuret Pep 1084 H (<=450) pg/mL Total Protein 7.6 (6.4-8.2) g/dL Albumin 2.0 L (3.4-5.0) g/dL Globulin 5.6 Albumin/Globulin Ratio 0.36 Urine Color (YELLOW) Urine Appearance (CLEAR) Urine pH (5.0-8.0) Ur Specific [place] Urine Protein (NEGATIVE) mg/dL Urine Glucose (UA) (NEGATIVE) mg/dL Urine Ketones (NEGATIVE) mg/dL Urine Occult Blood (NEGATIVE) Urine Nitrite (NEGATIVE) Urine Bilirubin (NEGATIVE) Urine Urobilinogen (0.2) EU/dL Ur Leukocyte Esterase (NEGATIVE) Urine RBC (NOT SEEN) /HPF Urine WBC (NOT SEEN) /HPF Ur Squamous Epith Cells (NEGATIVE) /HPF Amorphous Sediment Urine Bacteria (NEGATIVE) /HPF Urine Mucus (NEGATIVE) /LPF SARS CoV-2 RNA Rapid ANDERS (NEGATIVE) 07/09/20 07/09/20 07/09/20 Range/Units 11:56 11:56 13:05 WBC (4.0-10.0) x10^3/uL RBC (4.5-6.0) x10^6/uL Hgb (14.0-18.0) g/dL Hct (40.0-52.0) % MCV (78.0-93.0) fL MCH (26.0-32.0) pg MCHC (32.0-36.0) g/dL RDW Coeff of Angelique (10.0-15.0) % Plt Count (130-400) x10^3/uL Neut % (Auto) (50.0-80.0) % Lymph % (Auto) (25.0-50.0) % Hawkins % (Auto) (2.0-11.0) % Eos % (Auto) (0.0-4.0) % Baso % (Auto) (0.2-1.2) % Sodium (136-145) mmol/L Potassium (3.5-5.1) mmol/L Chloride (98-107) mmol/L Carbon Dioxide (21-32) mmol/L Anion Gap (10-20) mmol/L BUN (7-18) mg/dL Creatinine (0.70-1.30) mg/dL Est Cr Clr Drug Dosing Estimated GFR (MDRD) Glucose (74-106) mg/dL Lactic Acid 1.9 (0.4-2.0) mmol/L Calcium (8.5-10.1) mg/dL Corrected Calcium (8.5-10.1) mg/dL Magnesium 2.2 (1.8-2.4) mg/dL Total Bilirubin (0.2-1.0) mg/dL AST (15-37) U/L ALT (16-63) U/L Alkaline Phosphatase (46-116) U/L C-Reactive Protein (<=0.9) mg/dL NT-Pro-B Natriuret Pep (<=450) pg/mL Total Protein (6.4-8.2) g/dL Albumin (3.4-5.0) g/dL Globulin Albumin/Globulin Ratio Urine Color Dark yellow H (YELLOW) Urine Appearance Cloudy H (CLEAR) Urine pH 5.5 (5.0-8.0) Ur Specific [place] 1.020 Urine Protein 30 H (NEGATIVE) mg/dL Urine Glucose (UA) Negative (NEGATIVE) mg/dL Urine Ketones Negative (NEGATIVE) mg/dL Urine Occult Blood Moderate H (NEGATIVE) Urine Nitrite Negative (NEGATIVE) Urine Bilirubin Small H (NEGATIVE) Urine Urobilinogen 0.2 (0.2) EU/dL Ur Leukocyte Esterase Trace H (NEGATIVE) Urine RBC 30-40 H (NOT SEEN) /HPF Urine WBC 10-20 H (NOT SEEN) /HPF Ur Squamous Epith Cells Rare (NEGATIVE) /HPF Amorphous Sediment Few Urine Bacteria Moderate H (NEGATIVE) /HPF Urine Mucus Occasional H (NEGATIVE) /LPF SARS CoV-2 RNA Rapid ANDERS (NEGATIVE) 07/09/20 Range/Units 13:50 WBC (4.0-10.0) x10^3/uL RBC (4.5-6.0) x10^6/uL Hgb (14.0-18.0) g/dL Hct (40.0-52.0) % MCV (78.0-93.0) fL MCH (26.0-32.0) pg MCHC (32.0-36.0) g/dL RDW Coeff of Angelique (10.0-15.0) % Plt Count (130-400) x10^3/uL Neut % (Auto) (50.0-80.0) % Lymph % (Auto) (25.0-50.0) % Hawkins % (Auto) (2.0-11.0) % Eos % (Auto) (0.0-4.0) % Baso % (Auto) (0.2-1.2) % Sodium (136-145) mmol/L Potassium (3.5-5.1) mmol/L Chloride (98-107) mmol/L Carbon Dioxide (21-32) mmol/L Anion Gap (10-20) mmol/L BUN (7-18) mg/dL Creatinine (0.70-1.30) mg/dL Est Cr Clr Drug Dosing Estimated GFR (MDRD) Glucose (74-106) mg/dL Lactic Acid (0.4-2.0) mmol/L Calcium (8.5-10.1) mg/dL Corrected Calcium (8.5-10.1) mg/dL Magnesium (1.8-2.4) mg/dL Total Bilirubin (0.2-1.0) mg/dL AST (15-37) U/L ALT (16-63) U/L Alkaline Phosphatase (46-116) U/L C-Reactive Protein (<=0.9) mg/dL NT-Pro-B Natriuret Pep (<=450) pg/mL Total Protein (6.4-8.2) g/dL Albumin (3.4-5.0) g/dL Globulin Albumin/Globulin Ratio Urine Color (YELLOW) Urine Appearance (CLEAR) Urine pH (5.0-8.0) Ur Specific [place] Urine Protein (NEGATIVE) mg/dL Urine Glucose (UA) (NEGATIVE) mg/dL Urine Ketones (NEGATIVE) mg/dL Urine Occult Blood (NEGATIVE) Urine Nitrite (NEGATIVE) Urine Bilirubin (NEGATIVE) Urine Urobilinogen (0.2) EU/dL Ur Leukocyte Esterase (NEGATIVE) Urine RBC (NOT SEEN) /HPF Urine WBC (NOT SEEN) /HPF Ur Squamous Epith Cells (NEGATIVE) /HPF Amorphous Sediment Urine Bacteria (NEGATIVE) /HPF Urine Mucus (NEGATIVE) /LPF SARS CoV-2 RNA Rapid ANDERS Negative (NEGATIVE) Meds: Medications Generic Name Dose Route Start Last Admin Trade Name Freq PRN Reason Stop Dose Admin Sodium Chloride 1,000 mls @ 150 mls/hr 07/09/20 11:45 07/09/20 12:17 Normal Saline IV 150 mls/hr ASDIRECTED RYDER Administration Discontinued Medications Generic Name Dose Route Start Last Admin Trade Name Freq PRN Reason Stop Dose Admin Ceftriaxone Sodium 2 gm 07/09/20 12:37 07/09/20 13:29 Rocephin IVPUSH 07/09/20 12:38 2 gm STAT ONE Administration Furosemide 40 mg 07/09/20 14:28 Lasix PO 10/03/20 14:29 ONETIME ONE Furosemide 40 mg 07/09/20 14:28 07/09/20 14:51 Lasix IV 07/09/20 14:29 40 mg ONETIME ONE Administration Levofloxacin 1 packet 07/09/20 14:27 07/09/20 14:51 Take Home: Levofloxacin 500 Mg, 1 Tab Pack PO 07/09/20 14:28 1 packet ONETIME ONE Administration Ondansetron HCl 4 mg 07/09/20 11:44 07/09/20 12:17 Zofran IVPUSH 07/09/20 11:45 4 mg ONETIME ONE Administration - Re-Assessments/Exams Free Text/Narrative Re-Assessment/Exam: 07/09/20 Patient had large emesis shortly after arrival. Was given IV Zofran and has had no further vomiting while here. Initially placed on oxygen due to sats of 87%, improved to 95%. IV normal saline ordered. Vital signs otherwise stable. 1400- Labs all reviewed with patient and daughter. Does have mildly elevated WBC at 13.5, CRP 33. UA positive. Chest xray shows mild pleural effusions, no infiltrates. ProBNP 1024. Contacted [facility] and spoke with Dr. Botello. Advised IV fluids, antibiotics and Lasix, oxygen on admission. Discussed with patient and family. Patient is adamant against admission. Have had off oxygen now for 30 minutes and sats remain 90-92%. Did get a liter of fluids. Daughter is a nurse and states is willing to take him home and care for him. Are aware that if hypoxic will have no means to treat as unable to arrange for oxygen for home use today. May return at any time for admission or tomorrow for additional IV fluids/Rocephin. Given IV Lasix today and dose for tomorrow. Discussed need for follow up with PCP, may consider echocardiogram. Departure - Departure Time of Disposition: 14:20 Disposition: Home, Self-Care 01 Condition: Fair Clinical Impression: Weakness, Dehydration UTI (urinary tract infection) Qualifiers: Urinary tract infection type: site unspecified Hematuria presence: with hematuria Qualified Code(s): N39.0 - Urinary tract infection, site not specified - Discharge Information *PRESCRIPTION DRUG MONITORING PROGRAM REVIEWED*: No *COPY OF PRESCRIPTION DRUG MONITORING REPORT IN PATIENT BALAJI: No Instructions: Urinary Tract Infection, Adult, [id number], Dehydration, Adult, [id number] Referrals: Prisca Starr DO [Primary Care Provider] - Forms: ED Department Discharge Additional Instructions: 1. Rest 2. Push fluids/bland diet 3. Zofran as needed for nausea 4. Lasix 40 mg daily for 5 days and then reassess by primary care provider 5. May need echocardiogram 6. Levaquin 500 mg daily for 7 days 7. Contact PCP or Dr. Mccloud for ongoing concerns. - My Orders Last 24 Hours: My Active Orders 07/09/20 11:45 Sodium Chloride 0.9% [Normal Saline] 1,000 ml IV ASDIRECTED 07/09/20 12:38 Blood Culture x2 Reflex Set [OM.PC] Stat 07/09/20 12:45 CULTURE BLOOD [BC] Stat 07/09/20 12:53 CULTURE BLOOD [BC] Stat 07/09/20 13:05 CULTURE URINE [RM] Stat - Assessment/Plan Last 24 Hours: My Active Orders 07/09/20 11:45 Sodium Chloride 0.9% [Normal Saline] 1,000 ml IV ASDIRECTED 07/09/20 12:38 Blood Culture x2 Reflex Set [OM.PC] Stat 07/09/20 12:45 CULTURE BLOOD [BC] Stat 07/09/20 12:53 CULTURE BLOOD [BC] Stat 07/09/20 13:05 CULTURE URINE [RM] Stat
--- NOTE | 2020-07-09 12:09 | CR ---
[id number] RAD/RAD Chest PA or AP 1V EXAM: FRONTAL CHEST INDICATION: COUGH. COMPARISON: July 04, 2020. DISCUSSION: Small bilateral pleural effusions have increased. Borderline heart size with possible early central vascular congestion. Multifocal nodular bilateral airspace opacities are stable to mildly increased. IMPRESSION: 1. Evidence of fluid retention with new or increased mild central vascular congestion and increased small bilateral effusions. 2. Mildly increased moderate nodular bilateral airspace opacities. Ricky Colon MD 07/09/20 [id number] Thank you for allowing us to participate in the care of your patient.
[2020-07-09 12:16] LABS: CHLORIDE,CL 99 mmol/L (98-107); SODIUM,NA 135 mmol/L (136-145)
[2020-07-09 12:17] LABS: ANION GAP 9.5 mmol/L (10-20)
[2020-07-09] MEDS ORDERED: cefTRIAXone 2 GM Vial IVPUSH ONE (12:37)
[2020-07-09] MEDS ORDERED: Take Home: Levofloxacin 500 MG Tab, 1 Tab Pack PO ONE (14:27)
[2020-07-09] MEDS ORDERED: Furosemide 40 MG/4 ML VIAL IV ONE (14:28)
[2020-07-09] MEDS ORDERED: Furosemide 40 MG Tab PO ONE (14:28)
[2020-07-09 17:46] VITALS: BP 124/61; PULSE 90
[2020-07-10] MEDS ORDERED: Sodium Chloride 0.9% 1,000 ML IV PRN ×2 (09:49→14:52)
[2020-07-10] MEDS ORDERED: cefTRIAXone 2 GM Vial IVPUSH SCH (12:45)
== END 2020-07-09 14:35 | disposition home or self-care (01) ==
LOC: VM.ED 11:29
DX: E86.0 Dehydration (principal); R53.1 Weakness; N39.0 Urinary tract infection, site not specified; R31.9 Hematuria, unspecified; D72.829 Elevated white blood cell count, unspecified; Z88.1 Allergy status to other antibiotic agents; Z79.82 Long term (current) use of aspirin; Z79.899 Other long term (current) drug therapy; Z20.828 Contact with and (suspected) exposure to other viral communicable diseases
CPT/HCPCS: 36415; 71045; 80053; 81001; 83605; 83735; 83880; 85025; 86140; 87040; 87086; 96361; 96374; 96375; 99285-25; A9270-GY; J0696; J1940; J2405; J7030; U0002

== ENCOUNTER 2020-07-10 14:54 | Inpatient (IN) | payer MEDICARE, BC ==
[~2020-07-10 14:54] MED LIST: Sodium Chloride 0.9% 1,000 ML IV PRN
[2020-07-10] MEDS ORDERED: cefTRIAXone 2 GM Vial ONE (14:57)
[2020-07-10] MEDS ORDERED: Ondansetron 4 MG/2 ML SDV IVPUSH ONE (14:59)
[2020-07-10] MEDS ORDERED: cefTRIAXone 2 GM Vial IVPUSH SCH (15:00)
--- NOTE | 2020-07-10 17:04 | EDM.PDOC ---
ED HPI GENERAL MEDICAL PROBLEM - General Chief Complaint: Gastrointestinal Problem Stated Complaint: vomiting/weakness/cough Time Seen by Provider: 07/10/20 15:00 Source of Information: Reports: Patient, Family History Limitations: Reports: No Limitations - History of Present Illness INITIAL COMMENTS - FREE TEXT/NARRATIVE: Patient initially presented today as an outpatient for IV fluids and Rocephin. Was seen yesterday in the ER, had full work up. Found to have UTI, CHF and weakness related to recent chemo use. Had discussed patient status with Dr. Botello at [facility] and advised admission here for IV antibiotics. Patient and family were told recommendations. Patient did require oxygen yesterday as well to keep his oxygen sat greater than 90%. Had zofran and IV fluids. Refused to be admitted at that time. While here getting repeat IV fluids, patient's sat still low in the mid 80s and requiring oxygen. Took one sip of water and had large emesis so family asked that patient again be seen in ER and consider admission. Patient continues to be weak. Had chemotherapy on Saturday for pancreatic cancer with mets to the lung. Had a Whipple procedure last May in 2019 and had been doing fairly well. Was found to have recurrence of the cancer one month ago so opted for chemotherapy. Patient has been very weak since. Not able to eat or drink well. Was given Rocephin yesterday as well as IV Lasix and sent home. Family was aware of hypoxia at that time. Daughter is a nurse and felt comfortable suctioning him and taking care of him at home. Onset: Gradual Duration: Day(s): Location: Reports: Chest, Abdomen Severity: Moderate Associated Symptoms: Reports: Cough, cough w sputum, Fever/Chills (chills, no fever), Loss of Appetite, Nausea/Vomiting (vomiting but denies nausea), Shortness of Breath. Denies: Confusion, Chest Pain, Headaches - Related Data Allergies Allergy/AdvReac Type Severity Reaction Status Date / Time ciprofloxacin AdvReac Joint Pain Verified 07/10/20 17:46 Home Meds: Home Meds Aspirin [Halfprin] 1 tab PO DAILY 02/07/19 [History] Carbidopa/Levodopa [Carbidopa-Levo 25-100 MG ODT] 1 tab PO QID 02/07/19 [History] Cholecalciferol (Vitamin D3) [Vitamin D3] 10,000 units PO DAILY 02/07/19 [History] Mirtazapine 15 mg PO BEDTIME 02/07/19 [History] Acetaminophen [Tylenol Extra Strength] 500 mg PO Q4H PRN 05/07/20 [History] Albuterol/Ipratropium [DuoNeb 3.0-0.5 MG/3 ML] 3 ml NEB QID PRN 05/07/20 [History] Amylase/Lipase/Protease [Priti CORONADO 12,000 Units] 3 cap PO TID 05/07/20 [History] Ascorbic Acid 1,000 mg PO DAILY 05/07/20 [History] Docusate Sodium [Colace] 200 - 300 mg PO DAILY 05/07/20 [History] Multivit,Calc,Mins/Iron/Folic [Thera-M] 1 tab PO DAILY 05/07/20 [History] Mupirocin Oint [Bactroban Oint] 1 applic TOP BID PRN 05/07/20 [History] bisacodyL [Dulcolax] 10 mg RC DAILY PRN 05/07/20 [History] hydrOXYzine pamoate [Vistaril] 25 mg PO Q4H PRN 05/07/20 [History] polyethylene glycoL 3350 [MiraLAX] 17 gm PO DAILY PRN 05/07/20 [History] Furosemide [Lasix] 20 mg PO DAILY 06/26/20 [History] Magnesium Oxide 250 mg PO DAILY 06/26/20 [History] Ibuprofen 200 mg PO Q4HR PRN 07/10/20 [History] Omeprazole Magnesium [Prilosec Otc] 20 mg PO DAILY 07/10/20 [History] Prochlorperazine Maleate [Compazine] 10 mg PO QID PRN 07/10/20 [History] Past Medical History Cardiovascular History: Reports: High Cholesterol Respiratory History: Reports: Other (See Below) Other Respiratory History: chronic "farmers" cough Endocrine/Metabolic History: Reports: Other (See Below) Other Endocrine/Metabolic History: thyroid nodule, Vitamin B12 deficiency, Protein deficiency Oncologic (Cancer) History: Reports: Basal Cell Carcinoma, Pancreatic - Past Surgical History HEENT Surgical History: Reports: Cataract Surgery, Tonsillectomy Dermatological Surgical History: Reports: Skin Biopsy Social & Family History - Caffeine Use Caffeine Use: Reports: Coffee ED ROS GENERAL - Review of Systems Review Of Systems: See Below Constitutional: Reports: Chills, Malaise, Weakness, Fatigue, Decreased Appetite. Denies: Fever HEENT: Denies: Ear Pain, Rhinitis, Sinus Problem, Throat Pain Respiratory: Reports: Shortness of Breath, Cough, Sputum Cardiovascular: Denies: Chest Pain, Edema, Lightheadedness Endocrine: Reports: Fatigue GI/Abdominal: Reports: Vomiting. Denies: Abdominal Pain, Constipation, Diarrhea, Nausea : Reports: No Symptoms Musculoskeletal: Reports: No Symptoms Skin: Reports: No Symptoms Neurological: Reports: Weakness ED EXAM, GI/ABD - Physical Exam Exam: See Below Exam Limited By: No Limitations General Appearance: Alert, WD/WN, Mild Distress, Cachetic Ears: Normal External Exam, Normal TMs Nose: Normal Inspection, Normal Mucosa, No Blood Throat/Mouth: Other (mucous membranes ) Head: Normocephalic Neck: Normal Inspection, Supple, Non-Tender Respiratory/Chest: Decreased Breath Sounds, Crackles Cardiovascular: Regular Rate, Rhythm GI/Abdominal Exam: Normal Bowel Sounds, Soft, Non-Tender Extremities: Normal Inspection, No Pedal Edema Neurological: Alert, Oriented Skin Exam: Warm, Dry Course - Vital Signs Last Recorded V/S: Last Vital Signs Temp 97.6 F 07/11/20 13:41 Pulse 91 07/11/20 13:41 Resp 18 07/11/20 13:41 BP 113/68 07/11/20 13:41 Pulse Ox 95 07/11/20 18:00 - Orders/Labs/Meds Orders: Medication Orders Acetaminophen (Tylenol Extra Strength) 500 mg PO Q4H PRN PRN Reason: Pain Last Admin: 07/11/20 14:28 Dose: 500 mg Documented by: FAWN Albuterol/Ipratropium (Duoneb 3.0-0.5 Mg/3 Ml) 3 ml NEB QIDRT [facility] Last Admin: 07/11/20 14:55 Dose: 3 ml Documented by: Admin: 07/11/20 10:53 Dose: 3 ml Documented by: Admin: 07/11/20 07:19 Dose: 3 ml Documented by: Admin: 07/10/20 20:05 Dose: 3 ml Documented by: KIMBERLEY Aspirin (Halfprin) 81 mg PO DAILY [facility] Last Admin: 07/11/20 08:27 Dose: 81 mg Documented by: FAWN Bisacodyl (Dulcolax) 10 mg RECTAL DAILY PRN PRN Reason: Constipation Carbidopa/Levodopa (Sinemet 25-100 Mg) 1 tab PO 0830,1330,1730,2130 [facility] Last Admin: 07/11/20 17:24 Dose: 1 tab Documented by: Admin: 07/11/20 13:40 Dose: 1 tab Documented by: Admin: 07/11/20 08:32 Dose: 1 tab Documented by: Admin: 07/11/20 00:46 Dose: 1 tab Documented by: KIMBERLEY Enoxaparin Sodium (Lovenox) 40 mg SUBCUT DAILY [facility] Last Admin: 07/11/20 08:25 Dose: 40 mg Documented by: Admin: 07/11/20 02:13 Dose: Not Given Documented by: KIMBERLEY Flumazenil (Romazicon) 0.2 mg IVPUSH ASDIRECTED PRN PRN Reason: Respiratory Depression Guaifenesin (Mucinex) 600 mg PO BID PRN PRN Reason: Other Hydroxyzine HCl (Atarax) 25 mg PO Q4H PRN PRN Reason: Nausea/Vomiting Piperacillin Sod/Tazobactam (Sod 3.375 gm/ Sodium Chloride) 100 mls @ 25 mls/hr IV Q8H [facility] Last Admin: 07/11/20 17:17 Dose: 25 mls/hr Documented by: Admin: 07/11/20 10:44 Dose: 25 mls/hr Documented by: FAWN Lorazepam (Ativan) 1 mg IVPUSH Q2H PRN PRN Reason: Anxiety Mirtazapine (Remeron) 15 mg PO BEDTIME [facility] Last Admin: 07/11/20 00:45 Dose: 15 mg Documented by: KIMBERLEY Morphine Sulfate (Morphine) 2 mg IVPUSH Q2H PRN PRN Reason: Respiratory Depression Last Admin: 07/11/20 00:36 Dose: 2 mg Documented by: Admin: 07/10/20 19:44 Dose: 2 mg Documented by: KIMBERLEY Mupirocin (Bactroban Oint) 0 gm TOP BID PRN PRN Reason: Rash Amylase/Lipase/Protease [[place] Dr 12,000 Units] 3 cap PO TIDMEALS [facility] Last Admin: 07/11/20 17:25 Dose: Not Given Documented by: Admin: 07/11/20 12:15 Dose: 3 cap Documented by: Admin: 07/11/20 12:15 Dose: Not Given Documented by: FAWN Ondansetron HCl (Zofran) 4 mg IVPUSH Q8H PRN PRN Reason: Nausea Ondansetron HCl (Zofran) 4 mg IVPUSH TIDMEALS [facility] Last Admin: 07/11/20 17:17 Dose: 4 mg Documented by: Admin: 07/11/20 12:13 Dose: 4 mg Documented by: FAWN Pantoprazole Sodium (Protonix Iv) 40 mg IVPUSH Q12H [facility] Admin: 07/11/20 08:26 Dose: 40 mg Documented by: Admin: 07/11/20 02:13 Dose: Not Given Documented by: KIMBERLEY Polyethylene Glycol (Miralax) 17 gm PO DAILY PRN PRN Reason: Constipation Labs: Laboratory Tests 07/10/20 07/10/20 07/10/20 Range/Units 16:52 16:52 16:52 WBC 9.2 (4.0-10.0) x10^3/uL RBC 3.32 L (4.5-6.0) x10^6/uL Hgb 10.6 L (14.0-18.0) g/dL Hct 32.3 L (40.0-52.0) % MCV 97.3 H (78.0-93.0) fL MCH 31.9 (26.0-32.0) pg MCHC 32.8 (32.0-36.0) g/dL RDW Coeff of Angelique 12.8 (10.0-15.0) % Plt Count 322 D (130-400) x10^3/uL Neut % (Auto) 90.8 H (50.0-80.0) % Lymph % (Auto) 5.5 L (25.0-50.0) % Greene % (Auto) 2.3 (2.0-11.0) % Eos % (Auto) 1.3 (0.0-4.0) % Baso % (Auto) 0.1 L (0.2-1.2) % POC ABG pH (7.35-7.45) pH POC ABG pCO2 (35-48) mmHg POC ABG pO2 (83-108) mmHg POC ABG HCO3 (21-28) mmol/L POC ABG Total CO2 (22-29) mmol/L POC ABG O2 Sat % POC ABG Base Excess (-2-3) mmol/L POC FiO2 Sodium 138 (136-145) mmol/L Potassium 4.1 (3.5-5.1) mmol/L Chloride 102 (98-107) mmol/L Carbon Dioxide 30 (21-32) mmol/L Anion Gap 10.1 (10-20) mmol/L BUN 52 H (7-18) mg/dL Creatinine 1.4 H (0.70-1.30) mg/dL Est Cr Clr Drug Dosing TNP Estimated GFR (MDRD) 48 Glucose 111 H (74-106) mg/dL Lactic Acid 1.5 (0.4-2.0) mmol/L Calcium 9.1 (8.5-10.1) mg/dL Corrected Calcium 10.78 H (8.5-10.1) mg/dL Total Bilirubin 0.4 (0.2-1.0) mg/dL AST 27 (15-37) U/L ALT < 6 L (16-63) U/L Alkaline Phosphatase 124 H (46-116) U/L C-Reactive Protein 32.7 H (<=0.9) mg/dL NT-Pro-B Natriuret Pep 5093 H (<=450) pg/mL Total Protein 7.5 (6.4-8.2) g/dL Albumin 1.9 L (3.4-5.0) g/dL Globulin 5.6 Albumin/Globulin Ratio 0.34 07/10/20 Range/Units 16:59 WBC (4.0-10.0) x10^3/uL RBC (4.5-6.0) x10^6/uL Hgb (14.0-18.0) g/dL Hct (40.0-52.0) % MCV (78.0-93.0) fL MCH (26.0-32.0) pg MCHC (32.0-36.0) g/dL RDW Coeff of Angelique (10.0-15.0) % Plt Count (130-400) x10^3/uL Neut % (Auto) (50.0-80.0) % Lymph % (Auto) (25.0-50.0) % Greene % (Auto) (2.0-11.0) % Eos % (Auto) (0.0-4.0) % Baso % (Auto) (0.2-1.2) % POC ABG pH 7.41 (7.35-7.45) pH POC ABG pCO2 45 (35-48) mmHg POC ABG pO2 46 L* (83-108) mmHg POC ABG HCO3 28.2 H (21-28) mmol/L POC ABG Total CO2 27.8 (22-29) mmol/L POC ABG O2 Sat 91.7 % POC ABG Base Excess 3 (-2-3) mmol/L POC FiO2 0.70 Sodium (136-145) mmol/L Potassium (3.5-5.1) mmol/L Chloride (98-107) mmol/L Carbon Dioxide (21-32) mmol/L Anion Gap (10-20) mmol/L BUN (7-18) mg/dL Creatinine (0.70-1.30) mg/dL Est Cr Clr Drug Dosing Estimated GFR (MDRD) Glucose (74-106) mg/dL Lactic Acid (0.4-2.0) mmol/L Calcium (8.5-10.1) mg/dL Corrected Calcium (8.5-10.1) mg/dL Total Bilirubin (0.2-1.0) mg/dL AST (15-37) U/L ALT (16-63) U/L Alkaline Phosphatase (46-116) U/L C-Reactive Protein (<=0.9) mg/dL NT-Pro-B Natriuret Pep (<=450) pg/mL Total Protein (6.4-8.2) g/dL Albumin (3.4-5.0) g/dL Globulin Albumin/Globulin Ratio Meds: Medications Generic Name Dose Route Start Last Admin Trade Name Freq PRN Reason Stop Dose Admin Acetaminophen 500 mg 07/10/20 19:22 07/11/20 14:28 Tylenol Extra Strength PO 500 mg Q4H PRN Administration Pain Albuterol/Ipratropium 3 ml 07/10/20 20:00 07/11/20 14:55 Duoneb 3.0-0.5 Mg/3 Ml NEB 3 ml QIDRT RYDER Administration Aspirin 81 mg 07/11/20 08:00 07/11/20 08:27 Halfprin PO 81 mg DAILY RYDER Administration Bisacodyl 10 mg 07/10/20 19:22 Dulcolax RECTAL DAILY PRN Constipation Carbidopa/Levodopa 1 tab 07/10/20 21:30 07/11/20 17:24 Sinemet 25-100 Mg PO 1 tab 0830,1330,1730,2130 RYDER Administration Enoxaparin Sodium 40 mg 07/10/20 19:00 07/11/20 08:25 Lovenox SUBCUT 40 mg DAILY RYDER Administration Flumazenil 0.2 mg 07/11/20 04:15 Romazicon IVPUSH ASDIRECTED PRN Respiratory Depression Guaifenesin 600 mg 07/10/20 19:33 Mucinex PO BID PRN Other Hydroxyzine HCl 25 mg 07/10/20 19:49 Atarax PO Q4H PRN Nausea/Vomiting Piperacillin Sod/Tazobactam 100 mls @ 25 mls/hr 07/11/20 09:00 07/11/20 17:17 Sod 3.375 gm/ Sodium Chloride IV 25 mls/hr Q8H RYDER Administration Lorazepam 1 mg 07/11/20 04:15 Ativan IVPUSH Q2H PRN Anxiety Mirtazapine 15 mg 07/10/20 20:00 07/11/20 00:45 Remeron PO 15 mg BEDTIME RYDER Administration Morphine Sulfate 2 mg 07/10/20 18:54 07/11/20 00:36 Morphine IVPUSH 2 mg Q2H PRN Administration Respiratory Depression Mupirocin 0 gm 07/10/20 19:22 Bactroban Oint TOP BID PRN Rash Amylase/Lipase/ 3 cap 07/11/20 08:00 07/11/20 17:25 Protease [Creon Dr PO Not Given 12,000 Units] TIDMEALS RYDER Ondansetron HCl 4 mg 07/10/20 19:02 Zofran IVPUSH Q8H PRN Nausea Ondansetron HCl 4 mg 07/11/20 12:00 07/11/20 17:17 Zofran IVPUSH 4 mg TIDMEALS RYDER Administration Pantoprazole Sodium 40 mg 07/10/20 20:00 07/11/20 08:26 Protonix Iv IVPUSH 40 mg Q12H RYDER Administration Polyethylene Glycol 17 gm 07/10/20 19:22 Miralax PO DAILY PRN Constipation Discontinued Medications Generic Name Dose Route Start Last Admin Trade Name Freq PRN Reason Stop Dose Admin Ceftriaxone Sodium 2 gm 07/10/20 15:00 07/10/20 15:00 Rocephin IVPUSH 2 gm ONETIME RYDER Administration Ceftriaxone Sodium Confirm 07/10/20 14:57 07/10/20 15:00 Rocephin Administered 07/10/20 14:58 Not Given Dose 2 gm .ROUTE .STK-MED ONE Ceftriaxone Sodium 2 gm 07/11/20 08:00 07/11/20 08:26 Rocephin IVPUSH 2 gm DAILY RYDER Administration Docusate Sodium 200 - 300 mg 07/11/20 08:00 07/11/20 08:26 Colace PO 300 mg DAILY RYDER Administration Furosemide 40 mg 07/10/20 18:18 07/10/20 18:25 Lasix IV 07/10/20 18:19 40 mg ONETIME ONE Administration Furosemide 20 mg 07/11/20 08:00 07/11/20 08:27 Lasix PO 20 mg DAILY RYDER Administration Sodium Chloride 1,000 mls @ 250 mls/hr 07/10/20 14:53 07/10/20 15:01 Normal Saline IV 250 mls/hr CONTINUOUS PRN Administration O Sodium Chloride 1,000 mls @ 100 mls/hr 07/10/20 19:30 07/10/20 19:47 Normal Saline IV 100 mls/hr ASDIRECTED RYDER Administration Magnesium Oxide 400 mg 07/11/20 08:00 07/11/20 08:27 Magnesium Oxide PO 400 mg DAILY RYDER Administration Ondansetron HCl 4 mg 07/10/20 14:59 07/10/20 15:31 Zofran IVPUSH 07/10/20 15:00 4 mg ONETIME ONE Administration - Re-Assessments/Exams Free Text/Narrative Re-Assessment/Exam: 07/10/20 17:52 Patient able to be weaned down off the oxygen to 8 liters, still has sats at 99%. Oxygen decreased to 6 liters. Discussed labs with family. ProBNP has increased to over 5000 today. Chest xray shows more congestion. Other labs minimal change. DAughter aware. Patient is willing to be admitted today. Dr. Andrew notified. 180-Dr. Andrew here for admission process. Departure - Departure Time of Disposition: 18:04 Disposition: Admitted As Inpatient 66 Condition: Poor Clinical Impression: CHF, Congestive heart failure UTI (urinary tract infection) Qualifiers: Urinary tract infection type: site unspecified Hematuria presence: with hematuria Qualified Code(s): N39.0 - Urinary tract infection, site not specified - Discharge Information *PRESCRIPTION DRUG MONITORING PROGRAM REVIEWED*: No *COPY OF PRESCRIPTION DRUG MONITORING REPORT IN PATIENT BALAJI: No
[2020-07-10 17:17] LABS: PCO2 ARTERIAL,POC 45 mmHg (35-48)
[2020-07-10 17:37] LABS: ANION GAP 10.1 mmol/L (10-20); CHLORIDE,CL 102 mmol/L (98-107); SODIUM,NA 138 mmol/L (136-145)
--- NOTE | 2020-07-10 17:46 | CR ---
[id number] RAD/RAD Chest PA And Lateral EXAM: FRONTAL AND LATERAL CHEST INDICATION: SHORTNESS OF BREATH, COUGH. COMPARISON: July 09, 2020. DISCUSSION: Patchy multifocal nodular infiltrates are stable. Stable small bilateral pleural effusions. Central vascular congestion is stable or mildly improved. IMPRESSION: 1. Stable nodular bilateral infiltrates. 2. Stable small bilateral effusions and decreased or stable mild central vascular congestion. Ricky Colon MD 07/10/20 4029 Thank you for allowing us to participate in the care of your patient.
[2020-07-10] MEDS ORDERED: Furosemide 40 MG/4 ML VIAL IV ONE (18:18)
[2020-07-10] MEDS ORDERED: Acetaminophen 500 MG Tab PO PRN (19:22)
[2020-07-10] MEDS ORDERED: Bisacodyl 10 MG Supp RECTAL PRN (19:22)
[2020-07-10] MEDS ORDERED: Mupirocin Oint 22 GM Tube TOP PRN (19:22)
[2020-07-10] MEDS ORDERED: Polyethylene Glycol 3350 Powder 17 GM Packet PO PRN (19:22)
[2020-07-10] MEDS ORDERED: Sodium Chloride 0.9% 1,000 ML IV SCH (19:30)
[2020-07-10] MEDS ORDERED: guaiFENesin 600 MG Tab.ER PO PRN (19:33)
[2020-07-10] MEDS: Morphine 2 MG/ML SYRINGE IVPUSH PRN (19:44)
[2020-07-10] MEDS ORDERED: hydrOXYzine HCl 25 MG Tab PO PRN (19:49)
[2020-07-10] MEDS: Albuterol/Ipratropium 3.0-0.5 MG/3 ML Neb Soln NEB SCH (20:05)
--- NOTE | 2020-07-10 22:14 | HP ---
CHIEF COMPLAINT: Weakness. HISTORY OF PRESENT ILLNESS: The patient is an 85-year-old male who has failed outpatient therapy for nausea and vomiting post chemotherapy. He had started chemotherapy for his metastatic pancreatic cancer and became quite nauseated, was seen in [place] on 07/09/2020 at [facility], received IV fluids and some Zofran. Was found to have a UTI, given Rocephin 1 g and sent home. He was a little short of breath. He is normally on home oxygen. He returned today feeling more short of breath, more weak, was given again some IV fluids as well as some Rocephin. Chest x-ray did have some pleural congestion noted. It was noted that his proBNP had gone from 1084 to 5093 today, and the patient did agree today to be admitted after having refused yesterday. The patient is now contemplating not proceeding with any further chemotherapy and may be needing to look at palliative care and/or hospice care. He has seen Dr. Prisca Starr as well as Dr. Mccloud in the clinic. The patient himself is somewhat of a poor historian. His daughter, who is a nurse, is present as well as his , who are for giving much of the history. He just does not have much appetite. He has had nausea, not really emesis. The patient had been seen in [place] today and had received Rocephin as well as Zofran, but it is just not helping. He had also received Lasix 40 in the [place] as he did not take his Lasix at home this morning today. Family is quite distraught over the patient's change of health. MEDICATIONS: He is currently on Compazine 10 mg q.i.d. p.r.n. nausea and vomiting (family has not given it to him because of concern with his Parkinson interaction); Remeron 15 mg 1 pill at bedtime; jjnogd-patrdusn-nglddmi, which is Creon 12,000, 3 capsules by mouth 3 times a day; Sinemet 25/100, 1 pill 4 times a day; DuoNeb q.i.d. p.r.n.; Dulcolax 10 mg daily as needed for constipation; multivitamin 1 pill a day; furosemide 20 mg 1 pill a day as needed; magnesium oxide 250 mg 1 pill a day; Colace 100 mg pill, 2 to 3 pills daily; Prilosec 20 mg 1 pill a day; MiraLAX 1 packet as needed for constipation; Vistaril 25 mg 1 pill every 4 hours as needed for anxiety and itching and nausea; Tylenol 500 mg every 4 hours as needed for pain; ibuprofen 200 mg 1 every 4 to 6 hours as needed for mild pain (he was recently told to hold nonsteroidals due to GI upset; Bactroban 1 application b.i.d. p.r.n. groin rash; vitamin C 1000 mg 1 pill a day; vitamin D 2000 units, takes 5 pills once a day; aspirin 81 mg 1 pill a day. ALLERGIES: Cipro. PAST MEDICAL HISTORY: The patient was diagnosed with pancreatic cancer with metastases in 2018. He underwent a Whipple procedure, and he required external biliary drain due to obstructive jaundice. Stent was unsuccessful. The patient found to have mets to his lymph nodes in 3 of 14 lymph nodes in 06/2019. He has had multiple lung nodules attributed to interstitial lung disease in 2017 workup. The patient had 06/15/2020 PET scan, which showed peritoneal carcinomatosis, some lung metastases, and cancer marker CA19-9 at 5200. The patient has parkinsonism. He has had hyperlipidemia, peripheral neuropathy, thyroid disease, vitamin B12 deficiency. He has been a smoker, had some COPD. He has had severe protein-calorie malnutrition, thyroid nodule. PAST SURGICAL HISTORY: 07/14/2019, dehiscence of surgery from GI procedure; 06/22/2019, he had a Whipple procedure; 06/02/2019, ERCP; 06/02/2019, EGD; 06/02/2019, EUS with biopsy; 10/13/2014 cataracts; 09/22/2014, cataracts. He has had Mohs surgery, skin biopsy. PAST FAMILY HISTORY: Noncontributory. SOCIAL HISTORY: The patient is . 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 He has a daughter who is a nurse. He had smoked up until 10/07/1957. He had smoked for 2 years. Then, he had used smokeless tobacco up until 1979. Does not consume alcohol. REVIEW OF SYSTEMS: He has been losing weight. He is quite weak. He does cough, has a productive sputum. He has nausea with some vomiting. Does not have pain. Does have some Parkinson's, but not very affected. He will use a cane to walk outside the house, but does not use a cane in the house. Mood has been anxious in the past. OBJECTIVE: Vital Signs: Blood pressure 135/74. His respiratory rate was 24. Saturations were 93 on 8 L. Temperature was afebrile at 98.2. Pulse 87. Skin: [place], warm, and moist. HEENT: His pharynx was dry. He was frequently suctioning aguilar-colored mucus from his lungs. Lungs: He had inspiratory crackles bilaterally. Heart: Regular rate and rhythm. Abdomen: Reveals firm upper abdominal mass present. Bowel sounds are present. Extremities: Lower extremities are slender, thin. Neurologic: The patient's ability to talk was limited due to weakness as well as possibly parkinsonism. He did not tend to talk much. DIAGNOSTIC STUDIES: Chest x-ray was repeated today, which showed increased pleural effusion. His lab work that was done today shows white blood cell count 9.2, hemoglobin 10.6, platelets 322 with 90 segs, 5 lymphs, 2 monocytes. Sodium 138, potassium 4.1, CO2 of 102, creatinine 1.4, BUN 52, glucose 111. AST was 27, ALT less than 6, alkaline phosphatase 124. CRP is 32. ProBNP was 5093. Albumin 1.9. Blood gases had been obtained on 07/10/2010; pH showed 7.41, pCO2 of 45, pO2 of 46, bicarb 27, was on FiO2 of 0.7. He was not given any neb treatments in the ER. He had been given Rocephin. IMPRESSION: 1. Exacerbation of congestive heart failure. 2. Chemotherapy-induced nausea and vomiting. 3. Dehydration secondary to #1. 4. Interstitial pneumonitis with possibly infiltrate. 5. Urinary tract infection. 6. Parkinsonism. 7. Severe protein-calorie malnutrition. PLAN: The patient will be admitted to acute care. He will receive IV hydration. We will place him on scheduled DuoNeb. He just received Lasix in the ER to help with pulmonary function. He will have antiemetics. We will switch him to IV Protonix. The patient's code level status is code level do not resuscitate/do not intubate, which is new for him. If he does need BiPAP to help with oxygenation, family would like to have him receive that. The patient will require a sitter in the room as he does need assistance with his ADLs due to anxiety as well as weakness with his Parkinson's and because of COVID restrictions. To note, he had been tested on 07/09/2020, was negative for COVID. Dr. Prisca Starr to assume care. He could from his current problems. He may need transition to palliative care. GM07/10/2020 19:20:57 MODL: 07/10/2020 22:09:13 /[id number] [place]
[2020-07-11] MEDS: Morphine 2 MG/ML SYRINGE IVPUSH PRN (00:36)
[2020-07-11] MEDS: Mirtazapine 15 MG Tab PO SCH ×2 (00:45→19:36)
[2020-07-11] MEDS: Carbidopa/Levodopa 25-100 MG Tab PO SCH ×5 (00:46→21:50)
[2020-07-11] MEDS: Pantoprazole 40 MG Vial IVPUSH SCH ×3 (02:13→19:36)
[2020-07-11] MEDS: Enoxaparin 40 MG/0.4 ML Syringe SUBCUT SCH ×2 (02:13→08:25)
[2020-07-11] MEDS ORDERED: Flumazenil 0.1 MG/ML 5 ML MDV IVPUSH PRN (04:15)
[2020-07-11] MEDS ORDERED: LORazepam 2 MG/ML SDV IVPUSH PRN (04:15)
[2020-07-11] MEDS: Albuterol/Ipratropium 3.0-0.5 MG/3 ML Neb Soln NEB SCH ×4 (07:19→19:36)
[2020-07-11 07:30] LABS: CHLORIDE,CL 103 mmol/L (98-107); SODIUM,NA 139 mmol/L (136-145)
[2020-07-11 07:41] LABS: ANION GAP 9.7 mmol/L (10-20)
[2020-07-11] MEDS ORDERED: Magnesium Oxide 400 MG Tab PO SCH (08:00)
[2020-07-11] MEDS ORDERED: Docusate Sodium 100 MG Cap PO SCH (08:00)
[2020-07-11] MEDS ORDERED: cefTRIAXone 2 GM Vial IVPUSH SCH (08:00)
[2020-07-11] MEDS ORDERED: Furosemide 20 MG Tab PO SCH (08:00)
[2020-07-11] MEDS: Aspirin 81 MG Tab.EC PO SCH (08:27)
--- NOTE | 2020-07-11 10:27 | CR ---
[id number] RAD/RAD Chest PA or AP 1V EXAM: RAD Chest PA or AP 1V INDICATION: COUGH. COMPARISON: July 10, 2020. DISCUSSION: Persistent bilateral parenchymal opacities. Opacities are diffuse and symmetric throughout both lungs. Findings in the lung bases have increased compared to July 10, 2020. Blunting of the costophrenic sulci suspicious for small underlying pleural effusions as well. IMPRESSION: Progression of bilateral parenchymal opacities compared to yesterday. Avery Jansen MD 07/11/20 1026 Thank you for allowing us to participate in the care of your patient.
[2020-07-11] MEDS: Piperacillin/Tazobactam 3.375 GM in Sodium Chloride 0.9% 100 ML IV SCH ×2 (10:44→17:17)
--- NOTE | 2020-07-11 10:47 | PN ---
Progress Note for KWABENA BROWN RICHI Date: 07/11/2020 Room #: VM.216 SUBJECTIVE: 85-year-old, admitted with nausea and vomiting after chemotherapy and concern for a UTI with some respiratory distress, but refusing admission on Saturday, but came back yesterday and was having more problems, required a non-rebreather mask. He has known interstitial lung disease and he is able to do some suctioning at home. He denies that he has had any pain or cough or breathing issues or abdominal pain, but family states he has been coughing. He just started palliative chemotherapy last week and he had some fevers after it. His fever stopped, though on Saturday he got gemcitabine. The patient has been previously admitted with pneumonias and UTIs. Otherwise, the patient has been able to be weaned down to 4 L of oxygen today. He has not had any fevers since admission. He has not had any further vomiting since in the ER yesterday. He actually tolerated a little bit of breakfast this morning. Family is at his bedside. OBJECTIVE: Vital Signs: His temperature is 97.2, pulse 105, blood pressure 127/65, respiratory rate 19, and O2 96% on 4 L but did desaturate down to 90% with talking. General: He is in no acute distress. Heart: Regular rate and rhythm. S1, S2 without murmur, but tachycardic. Lungs: Sounds were decreased in both bases, but clear in the upper lungs. There were crackles even on the left side. Abdomen: Positive bowel sounds. Nondistended, nontender. Extremities: Warm and dry. No edema. Mental Status: He is alert. He is answering all questions appropriately. He recognizes me. LABORATORY WORK: Did show his white count normal at 8.6, hemoglobin is 10.3, platelets are 270. Sodium 139, potassium 3.7, chloride 103, bicarb 30, BUN 49, creatinine 1.4, corrected calcium 11, glucose 83, lactic 1.2, AST 27, ALT 6, CRP 28.7, alkaline phosphatase 116. ProBNP 4265. Albumin 1.7. ASSESSMENT: 1. Nausea and vomiting after chemo, possibly an aspiration pneumonia related to that with acute hypoxic respiratory failure. 2. Exacerbation of congestive heart failure from fluids given for nausea, vomiting, and dehydration. 3. Interstitial pneumonitis. 4. Urinary tract infection. His culture is negative. 5. Parkinsonism. 6. Severe protein-calorie malnutrition. 7. Metastatic pancreatic cancer with recent chemo given. PLAN: The patient is admitted to acute cares. We will monitor his blood counts closely. We will switch his Rocephin over to IV Zosyn. He elects to be a code level 3. Did discuss that at this time there is no indications for transfer, but I would touch base with his oncologist. Continue supportive cares. Family is at the bedside. He does meet palliative care status. MKA: 07/11/2020 09:40:36 MODL: 07/11/2020 10:41:19 /[id number] MTDD
[2020-07-11] MEDS: Ondansetron 4 MG/2 ML SDV IVPUSH SCH ×2 (12:13→17:17)
[2020-07-11] MEDS: AMYLASE PO SCH ×3 (12:15→17:25)
[2020-07-11] MEDS: PROTEASE PO SCH ×3 (12:15→17:25)
[2020-07-11] MEDS: LIPASE PO SCH ×3 (12:15→17:25)
[2020-07-11] MEDS: Ondansetron 4 MG/2 ML SDV IVPUSH PRN (23:20)
[2020-07-12] MEDS: Morphine 2 MG/ML SYRINGE IVPUSH PRN ×3 (01:49→14:51)
[2020-07-12] MEDS: Piperacillin/Tazobactam 3.375 GM in Sodium Chloride 0.9% 100 ML IV SCH ×3 (03:50→21:27)
[2020-07-12] MEDS ORDERED: Albuterol/Ipratropium 3.0-0.5 MG/3 ML Neb Soln NEB ONE (04:01)
--- NOTE | 2020-07-12 04:18 | PCM.SN.2 ---
- Free Text/Narrative Note: S: Asked by nursing to come and see this patient with a status change overnight. Had an emesis earlier this evening which has been followed by respiratory changes. Was hypoxic and required non-rebreather mask. Has now been weaned to nasal cannula again. However, respiratory rates have been in the 30's. Patient is admitted for aspiration pneumonia and UTI. Symptoms overnight now are similar to what he had in the ER and then again on the floor last night. O: Vitals reviewed. Patient is tachycardic with a regular rhythm. He is tachypneic. Lungs with scattered crackles. Abdomen with normoactive bowel sounds, soft, nontender, nondistended. Legs with 1+ pitting edema to just below the knee bilaterally. A/P: #1 Respiratory distress - Patient has improved compared to an hour ago per nursing. - Neb treatment given with some improvement in symptoms. - Did consider BiPap; however, I suspect this is more of a chemical pneumonitis in which case BiPap will not be helpful and could actually be harmful. - Will monitor for the next couple of hours. If any change in status, will reconsider starting BiPap.
[2020-07-12] MEDS: Albuterol/Ipratropium 3.0-0.5 MG/3 ML Neb Soln NEB SCH ×4 (06:28→19:31)
[2020-07-12 07:24] LABS: CHLORIDE,CL 105 mmol/L (98-107); SODIUM,NA 143 mmol/L (136-145)
[2020-07-12 07:26] LABS: ANION GAP 10.7 mmol/L (10-20)
[2020-07-12] MEDS: Pantoprazole 40 MG Vial IVPUSH SCH ×2 (07:58→19:31)
[2020-07-12] MEDS: Enoxaparin 40 MG/0.4 ML Syringe SUBCUT SCH (07:58)
[2020-07-12] MEDS: LIPASE PO SCH ×3 (07:59→18:07)
[2020-07-12] MEDS: Ondansetron 4 MG/2 ML SDV IVPUSH SCH ×3 (07:59→18:16)
[2020-07-12] MEDS: PROTEASE PO SCH ×3 (07:59→18:07)
[2020-07-12] MEDS: AMYLASE PO SCH ×3 (07:59→18:07)
[2020-07-12] MEDS: Aspirin 81 MG Tab.EC PO SCH (07:59)
[2020-07-12] MEDS: Carbidopa/Levodopa 25-100 MG Tab PO SCH ×5 (08:07→21:28)
[2020-07-12] MEDS ORDERED: Albumin 25% 25 GM in Sodium Chloride 0.9% 400 ML IV ONE (08:45)
[2020-07-12] MEDS ORDERED: Albuterol/Ipratropium 3.0-0.5 MG/3 ML Neb Soln NEB PRN (08:48)
[2020-07-12] MEDS: Metoclopramide 10 MG/2 ML SDV IVPUSH SCH ×3 (09:57→21:22)
[2020-07-12] MEDS ORDERED: Furosemide 20 MG/2 ML VIAL IV ONE ×2 (12:58→14:20)
[2020-07-12] MEDS: Ondansetron 4 MG/2 ML SDV IVPUSH PRN (13:59)
--- NOTE | 2020-07-12 14:45 | PCM.SN.2 ---
- Free Text/Narrative Note: Due to patient being end of life and having respiratory distress family will be allowed to stay at bedside more than just the 2 people at a time for compassionate care and only immediate family not to exceed 4 people. Please see my detailed dictation for further information about the patient's condition.
--- NOTE | 2020-07-12 16:18 | PN ---
Progress Note for KWABENA BROWN RICHI Date: 07/12/2020 Room #: VM.216 SUBJECTIVE: This is hospital day #3 on an 85-year-old with metastatic pancreatic cancer, who received low-dose gemcitabine 1 week ago and had nausea and vomiting and fevers after, got some IV fluids on 07/09 and was admitted on the 4th in respiratory distress. Repeat x-ray yesterday showed increased fluid and infiltrates. IV fluids were stopped. He got oral Lasix. He was increased from Rocephin to IV Zosyn and actually had a pretty good day. He did have some intake. Unfortunately, around 4 a.m. he vomited and went into respiratory distress again. Decision was made not to place him on BiPAP due to his secretions. Daughter asked about CO2 retention on admission. His CO2 was 45. He denies that he is in any pain, but he reports he is short of breath and this is the first time he has talked about that. He is still coughing. He has really been unable to take in much for intake. Family also asked about albumin as he needed it a couple of times after his Whipple procedure last year. Otherwise, his abdomen is currently nondistended, nontender. He has been afebrile. He did receive some morphine around 1 a.m. for some respiratory distress, but it did not seem to help that much. He was tachypneic. The patient has been on scheduled Zofran. OBJECTIVE: Vital Signs: His temperature 97.6, his pulse is currently 99 but was 110 earlier. His blood pressure 115/58, respiratory rate 24, and O2 currently 88% on 4-1/2 L. General: He is in moderate respiratory distress. He is using accessory movements. He is obviously working quite hard to breathe. Heart: Regular rate and rhythm with tachycardia. Lungs: Lung sounds are decreased with crackles on the right base. His left lung is actually more clear today. Upper lobes are clear. Abdomen: Positive bowel sounds. Soft, nontender. Extremities: Warm and dry, pale, but no mottling, no edema. Mental Status: He is alert, he is orientated x3. He is thanking me for my care. He is answering questions appropriately. He is actually wanting to go home. LABORATORY DATA: White count 9.7, hemoglobin down to 9.9 from 10.3, platelets 232. Sodium 143, potassium 3.9, chloride 105, bicarb 31, BUN 45, creatinine 1.3 improved, calcium 10.9, AST 20, ALT 6, bilirubin 0.4, alkaline phosphatase 133. ProBNP yesterday was 4265, down from the day before. Albumin down to 1.7. Cultures so far, there are no cultures from this admission, but his urine culture from ER visit on the previous day showed no growth. Blood cultures from the previous date showed no growth. ASSESSMENT AND PLAN: 1. Acute hypoxic respiratory failure, possibly due to volume overload from congestive heart failure and also aspiration pneumonitis. The patient will continue non-rebreather mask and respiratory support. We did discuss giving albumin today for his dehydration to see if this helps. We will give Lasix again if needed. We talked about BiPAP, but at this point, we discussed the benefits may not outweigh the risks for recurrent aspiration. 2. Exacerbation of congestive heart failure. The patient will get IV Lasix again today. 3. Metastatic pancreatic cancer, could be causing some symptoms in his abdomen that is causing this vomiting. Discussed possibility for further imaging, but at this point, he is more comfortable with no abdominal pain, so we will not pursue it. 4. Underlying pulmonary fibrosis. 5. Parkinsonism. 6. Severe protein-calorie malnutrition. 7. Anemia. PLAN: The patient will continue under acute cares but with focus on comfort and compassionate cares. The patient's condition did deteriorate throughout the day and recommendations were made for end-of-life care to allow his family to be present in the room. The patient was working more extensively to breathe and decision was made later in the day to give him a trial of BiPAP and see how he tolerates it, especially to aid in diuresis. The patient did receive Lovenox for DVT prophylaxis as his platelet counts were stable and he was high risk for blood clots. I did discuss with family focusing on comfort cares, but at this point, we will continue some of his acute treatments like the IV antibiotics and he is still on just p.r.n. morphine. They do understand that if condition worsens, we will schedule morphine. For now, we will keep him on scheduled Zofran and also add scheduled Reglan. Overall, the patient's condition is extremely guarded. Family is at the bedside and is hopeful to visit with hospice later today with the ultimate goal of taking the patient home. At this point, I have not ordered any repeat lab work. He has not been able to take most of his oral medications. We are focusing on comfort and supportive cares. DuoNebs are also available and have been given for his respiratory distress. MKA: 07/12/2020 15:21:29 MODL: 07/12/2020 16:10:11 /[id number]
[2020-07-12] MEDS ORDERED: Glycopyrrolate 0.2 MG/ML 2 ML SDV IVPUSH PRN (19:20)
[2020-07-12] MEDS: Dexamethasone 4 MG/ML SDV IVPUSH SCH (19:31)
[2020-07-12] MEDS: Mirtazapine 15 MG Tab PO SCH (21:26)
[2020-07-13] MEDS: Morphine 2 MG/ML SYRINGE IVPUSH PRN (01:18)
[2020-07-13] MEDS: Metoclopramide 10 MG/2 ML SDV IVPUSH SCH ×4 (03:29→20:48)
[2020-07-13] MEDS: Piperacillin/Tazobactam 3.375 GM in Sodium Chloride 0.9% 100 ML IV SCH ×3 (05:04→16:30)
[2020-07-13] MEDS: Albuterol/Ipratropium 3.0-0.5 MG/3 ML Neb Soln NEB SCH ×4 (06:18→20:39)
[2020-07-13] MEDS: Ondansetron 4 MG/2 ML SDV IVPUSH SCH (08:03)
[2020-07-13] MEDS: Pantoprazole 40 MG Vial IVPUSH SCH (08:03)
[2020-07-13] MEDS: Dexamethasone 4 MG/ML SDV IVPUSH SCH ×2 (08:04→20:38)
[2020-07-13] MEDS: Carbidopa/Levodopa 25-100 MG Tab PO SCH ×4 (09:22→20:41)
[2020-07-13] MEDS: Ondansetron 4 MG Tab.DIS PO SCH ×2 (12:49→20:48)
[2020-07-13] MEDS ORDERED: Furosemide 20 MG/2 ML VIAL IV ONE (12:59)
[2020-07-13] MEDS: Mirtazapine 15 MG Tab PO SCH (20:41)
[2020-07-13 20:58] VITALS: BP 129/62; PULSE 106
--- NOTE | 2020-07-13 21:19 | PN ---
Progress Note for KWABENA BROWN RICHI Date: 07/13/2020 Room #: VM.216 SUBJECTIVE: This is hospital day #4 on an 85-year-old with metastatic pancreatic cancer, admitted with vomiting after chemotherapy resulting in aspiration pneumonia and hypoxic respiratory failure. Yesterday, patient was given some albumin 500 mL of 5% and decompensated into respiratory failure. This was followed by 2 doses of IV Lasix and then he vomited despite IV Reglan and Zofran. He was initiated also on IV dexamethasone, and for a while yesterday afternoon, he was quite lethargic, less responsive, struggling to breathe on the non-rebreather but unable to tolerate bipap. Overnight, he has had some improvement with saturations into the mid-to-high 90s on 8 L usually through the mouth as he is a mouth breather. He denies that he is in any pain. He received only 1 dose of IV morphine overnight. He has, otherwise, had his scheduled nebulizers, was unable to take any additional doses of his Carbidopa/Levodopa or his Remeron last night but is asking to try a few bites of food today. He otherwise did have his IV antibiotics last evening, but I held his morning dose until I visited with family. The patient's goal was to go home. However, he is still on 8 L of oxygen, so the family and patient are not sure if this is going to be able to happen. Their plan is to meet with hospice today. Otherwise, he has not had any vomiting since yesterday afternoon. He has been afebrile. OBJECTIVE: Vital Signs: His temperature on rounds 96.8, pulse 96, blood pressure 110/57, respiratory rate 32, and O2 of 99% on 8 L. General: He is in no acute distress. He is awake. He is alert. He is making eye contact. He is trying to answer questions, but his voice is quite soft. Heart: Regular rate and rhythm with tachycardia but no murmurs. Lungs: Lung sounds are decreased in the bases, more crackles noted over the left lung today. Right lung is more clear. No wheezing. Abdomen: Positive bowel sounds. It is soft and nondistended, nontender. Extremities: Warm and dry. No edema. They are pale, but no mottling. Mental Status: He seems to recognize me and all of his family. Otherwise, orientation questions were not specifically asked. LABORATORY DATA: No lab work has been performed since 07/12. ASSESSMENT AND PLAN: 1. Acute hypoxic respiratory failure due to aspiration from vomiting with an aspiration pneumonia, likely worsened by some volume overload. Right now, patient has very limited oral intake, but his blood pressures are acceptable. We will give him another IV dose of Lasix today. 2. Exacerbation of congestive heart failure. He has been unable to tolerate additional fluids. We will continue to monitor closely. 3. Metastatic pancreatic cancer to the omentum and lungs. This might also be contributing to his hypoxia. He was initially getting Lovenox, but when he went to comfort care status yesterday, I did discontinue that. Due to his performance status, he is not a candidate for any further chemotherapy and I have been in contact with his oncologist. He will remain on the dexamethasone 2 mg twice daily. 4. Underlying pulmonary fibrosis. 5. Parkinsonism. 6. Severe protein-calorie malnutrition. 7. Anemia. PLAN: At this point, discussed with the patient and family. His goal would be to go home. They will meet with hospice today. His daughter who is a nurse says he came back from things like this before. I had a very honest conversation with them and discussed how this time the patient is severely malnourished and now his cancer is metastatic. He has also had very limited intake and they did refuse to do any tube feeds yesterday, which I agree as he likely would have more problems with aspiration. The patient even did try the BiPAP briefly yesterday while waiting for some family to be able to come up and he did not tolerate that well. Right now, full comfort medications are ordered with morphine, nausea medications, medications for secretions, but he is also continuing on antibiotics to complete a 5-day course. We will see if it works out to go home with hospice. Otherwise, swing bed for end-of-life cares would be an another consideration. Social Work is also involved. No further lab work is planned. We will see if we can get him eating some things today for his own enjoyment/comfort. I do not think that further fluids with D5 is going to be helpful for him. We will see if he can tolerate some oral Zofran. If not, I will switch back to IV. MKA: 07/13/2020 20:29:07 MODL: 07/13/2020 21:12:55 /[id number] MTDD
[2020-07-14] MEDS: Piperacillin/Tazobactam 3.375 GM in Sodium Chloride 0.9% 100 ML IV SCH (00:55)
[2020-07-14] MEDS: Metoclopramide 10 MG/2 ML SDV IVPUSH SCH ×2 (03:12→09:00)
[2020-07-14] MEDS: Albuterol/Ipratropium 3.0-0.5 MG/3 ML Neb Soln NEB SCH ×2 (06:31→11:15)
[2020-07-14] MEDS ORDERED: Omeprazole 20 MG Cap.CR PO SCH (08:00)
[2020-07-14] MEDS: Ondansetron 4 MG/2 ML SDV IVPUSH PRN (08:39)
[2020-07-14] MEDS: Morphine 2 MG/ML SYRINGE IVPUSH PRN (08:39)
[2020-07-14] MEDS: Dexamethasone 4 MG/ML SDV IVPUSH SCH (08:42)
[2020-07-14] MEDS: Carbidopa/Levodopa 25-100 MG Tab PO SCH (09:00)
[2020-07-14] MEDS: Ondansetron 4 MG Tab.DIS PO SCH (09:00)
[2020-07-14] MEDS ORDERED: LORazepam 2 MG/ML SDV IVPUSH PRN (09:26)
[2020-07-14] MEDS ORDERED: Morphine 4 MG/ML Syringe IVPUSH PRN (09:28)
--- NOTE | 2020-07-14 16:04 | DISCH ---
PRIMARY DISCHARGE DIAGNOSES: 1. Acute hypoxic respiratory failure secondary to an aspiration pneumonia. 2. Aspiration pneumonia. 3. Exacerbation of congestive heart failure. EF known to be 55% in 06/2019. 4. Metastatic pancreatic cancer to the lungs and omentum. Received 1 dose of gemcitabine chemotherapy over a week ago. 5. Underlying pulmonary fibrosis. 6. Parkinson's. 7. Severe protein calorie malnutrition. 8. Anemia. REASON FOR ADMISSION: On the date of admission, this 85-year-old male who had known pancreatic cancer and had received chemotherapy on 07/05, had been having some vomiting and fevers the rest of that week. He came in and got some IV fluids on 07/08 and actually refused admission. There was concern he had a UTI, but that culture eventually was negative. He also got some IV Rocephin. The next day when he came back for fluids, he was in more respiratory failure. Therefore, he was admitted. He was actually given some IV Lasix at that time. The patient was also on IV Rocephin, but by the next day I increased him to IV Zosyn. He remained afebrile, but repeat x-ray was showing increased infiltrates. We did repeat doses of IV Lasix as he never became overly hypotensive. We did try some 5% albumin for dehydration; however, he went into further respiratory failure on 07/12 and the patient was placed on comfort measures. Multiple discussions were had with his family. He did complete a 5- day course of IV antibiotics. He had IV morphine available p.r.n. and he had not used any for 24 hours, but this morning when I arrived on the floor, he had just woken up. He had a good restful night per his daughter, but he was restless. He was given the morphine. She was concerned about the dryness in his mouth. He was using oxygen in the mouth 7 to 8 L, even though it was humidified. We did recommend to stop the oxygen to help with comfort. After he got the morphine, they did request a dose of Ativan and then a 2nd dose of Ativan, but the patient peacefully at 9:35 with family at bedside before the 2nd dose of Ativan could be given. When I rounded on him in the morning, he was not complaining of any pain. He was reaching out, seemed to be asking for family. His and son and son-in-law were in the room in addition to his daughter. The patient was also during his stay, treated with IV Zofran, IV Reglan, and IV dexamethasone due to his recurrent vomiting, although he had not had any in about 24 hours. When he did vomit, it seemed to worsen his respiratory status. He did have suction available to use. The patient had known pancreatic cancer, but after he threw up, his abdomen was always soft and nontender. Therefore, we did not pursue any imaging and did discuss that likely there would not be anything we could treat. We had mentioned an NG tube. Family did not want that. We did even briefly discuss tube feeding due to his severe malnutrition. Again, they did not want that due to the fact that the patient had the incurable illness and comfort for him was desired. The patient was very cachectic and was unable to have much intake during his stay, but was allowed to eat or have ice chips per his comfort. He otherwise had no lab work since going on comfort care status, but initially his calcium was up to 11. His proBNP at one point was up to 5000. His COVID testing was negative on admission. His pCO2 initially was only 45 and his hemoglobin was 9.9 when it was last checked. White count was elevated on 07/09 to 13.5, but normal by admission. He was not having any fevers throughout his acute stay. PHYSICAL EXAMINATION: Vital Signs: Objectively in the morning, while I rounded just prior to his , no vitals had been charted, but his O2 was 90% on 7 L the evening prior, his temperature was 98.6, pulse 106, blood pressure 129/62, respiratory rate 28. We had decreased his vital checks for comfort as well. General: He was in mild distress, but he was able to open his eyes. He was making some eye contact. He seemed to become more alert when his son came over to the bedside. He was trying to speak. It was very difficult to understand him as he was sort of grunting to breathe in and moaning, but did not appear to be in any significant pain. Otherwise, he was cachectic. Heart: Regular rate and rhythm, very tachycardic. Lungs: Sounds were decreased with rhonchi throughout. Abdomen: Nondistended, nontender. Extremities: Pale and thin, but no edema, no mottling appreciated. The patient peacefully with family at bedside of metastatic pancreatic cancer under end-of-life comfort cares at [facility]. MKA: 07/14/2020 14:17:14 MODL: 07/14/2020 15:53:35 /[id number]
== END 2020-07-14 09:35 | disposition expired | DRG 177 ==
LOC: VM.ED 14:54 → VM.ACU 14:54 → EDSTATUS 16:28 → VM.MS 18:01 → UNDOADMIN 18:52 → VM.MS 18:52 → UNDODISIN 07-14 09:35
PROVIDERS: ADMIT Family Medicine; ATTEND Internal Medicine
DX: J69.0 Pneumonitis due to inhalation of food and vomit (principal); J96.01 Acute respiratory failure with hypoxia; R53.1 Weakness; E43 Unspecified severe protein-calorie malnutrition; C78.00 Secondary malignant neoplasm of unspecified lung; I50.33 Acute on chronic diastolic (congestive) heart failure; N39.0 Urinary tract infection, site not specified; C25.9 Malignant neoplasm of pancreas, unspecified; C78.02 Secondary malignant neoplasm of left lung; C78.01 Secondary malignant neoplasm of right lung; C78.6 Secondary malignant neoplasm of retroperitoneum and peritoneum; Z68.1 Body mass index [BMI] 19.9 or less, adult; C77.9 Secondary and unspecified malignant neoplasm of lymph node, unspecified; Z51.5 Encounter for palliative care; Z66 Do not resuscitate; R09.2 Respiratory arrest; J84.10 Pulmonary fibrosis, unspecified; G20 Parkinson's disease; D64.9 Anemia, unspecified; E78.00 Pure hypercholesterolemia, unspecified; E04.1 Nontoxic single thyroid nodule; E53.8 Deficiency of other specified B group vitamins; K59.00 Constipation, unspecified; E78.5 Hyperlipidemia, unspecified; J44.9 Chronic obstructive pulmonary disease, unspecified; G62.9 Polyneuropathy, unspecified; E86.0 Dehydration; J84.89 Other specified interstitial pulmonary diseases; R11.2 Nausea with vomiting, unspecified; T45.1X5A Adverse effect of antineoplastic and immunosuppressive drugs, initial encounter; Z85.828 Personal history of other malignant neoplasm of skin; Z98.890 Other specified postprocedural states; Z88.1 Allergy status to other antibiotic agents; Z79.82 Long term (current) use of aspirin; Z79.899 Other long term (current) drug therapy; Z87.891 Personal history of nicotine dependence; Z90.89 Acquired absence of other organs; Z99.81 Dependence on supplemental oxygen; Z98.41 Cataract extraction status, right eye; Z98.42 Cataract extraction status, left eye; Z87.440 Personal history of urinary (tract) infections
CPT/HCPCS: 36415; 36600; 51798; 71045; 71046; 80053; 82803; 83605; 83735; 83880; 85025; 86140; 94640; 94760; 96361; 96374; 96375; 97110-GP; 97162-GP; 97165-GO; 99285-25; A9270-GY; C9113; J0696; J1100; J1650; J1940; J2060; J2270; J2405; J2543; J2765; J7030; J7040; J7050; J7620-GY; P9047